=== PATIENT | male | born 1955 | race Caucasian/White ===

== ENCOUNTER 2017-02-26 11:29 | Emergency (ER) | payer BC ==
[~2017-02-26] VITALS: Ht 177.8 cm; Wt 160.0 kg
[~2017-02-26 11:29] MED LIST: ALLO300T2 PO; ESOM40GR PO
[2017-02-26 11:31] VITALS: TEMP 36.4; Ht 177.8 cm; Wt 160.0 kg
[2017-02-26] MEDS ORDERED: KETOROLAC TROMETHAMINE 30 MG/ML VIAL IV STA (12:00)
[2017-02-26] MEDS ORDERED: ONDANSETRON INJ 2 MG/ML 2 ML VIAL IV STA (12:00)
[2017-02-26] MEDS ORDERED: FENTANYL CITRATE INJ 50 MCG/1 ML 2 ML VIAL IV STA (12:00)
[2017-02-26] MEDS ORDERED: SODIUM CHLORIDE 0.9% 1000ML 1,000 ML IV STA (12:00)
[2017-02-26 12:10] LABS: BASO % 0.1 %; BASO ABS # 0.01 K/uL (0-0.2); COMPLETE YES; EOS % 1.1 %; IG% 0.5 %; LYMPH % 13.7 %; LYMPH ABS # 1.45 K/uL (1.2-3.4); MEAN CELL VOLUME 84.9 fL (80-100); MEAN CORPUSCULAR HEMOGLOBIN 28.5 pg (25-34); MEAN CORPUSCULAR HGB CONC 33.6 g/dl (32-36); MEAN PLATELET VOLUME 10.1 fL (7.4-10.4); NEUT % 78.6 %; PLATELET COUNT 163 K/uL (130-400); WHITE BLOOD COUNT 10.55 K/uL (4.8-10.8)
[2017-02-26 12:17] LABS: CREATININE 1.18 mg/dl (0.60-1.40); POTASSIUM 4.3 mmol/L (3.5-5.1)
--- NOTE | 2017-02-26 12:54 | DIAGNOSTIC IMAGING REPORT ---
ABDOMEN AND PELVIS CT WITHOUT CONTRAST CT DOSE: 1782.50 mGy.cm HISTORY: Left flank pain TECHNIQUE: Multiaxial CT images of the abdomen and pelvis were performed without the use of intravenous and oral contrast according to the standard department stone protocol. A dose lowering technique was utilized adhering to the principles of ALARA. COMPARISON STUDY: None. FINDINGS: The lung bases are clear. No pneumoperitoneum. No pneumatosis. No suspicious lytic or blastic osseous lesions. Small fat-containing umbilical hernia. Small fat-containing bilateral inguinal hernias. Hepatic steatosis. The unenhanced spleen, adrenal glands, pancreas, and gallbladder are unremarkable. No retroperitoneal lymphadenopathy. Appendectomy. Normal bladder. Suboptimal evaluation for bowel pathology due to the lack of intravenous and oral contrast. However, there is no definite bowel wall thickening or obstruction. Colonic diverticulosis. No renal calculi. No right-sided hydronephrosis. Mild left perinephric edema. Mild left hydronephrosis secondary to an obstructing 2 mm stone within the distal left ureter best seen on image 429. IMPRESSION: 1. A 2 mm stone within the distal left ureter resulting in mild left hydronephrosis. 2. Hepatic steatosis. 3. Colonic diverticulosis. 4. Appendectomy. Electronically signed by: Jaguar Juarez M.D. 02/26/2017 12:52 PM Dictated Date/Time: 02/26/2017 12:48 PM
[2017-02-26] MEDS ORDERED: MoRPHine SULFATE 10 MG/ML CARP/VIAL IV STA (13:08)
[2017-02-26] MEDS ORDERED: OXYC-106 PO (13:09)
[2017-02-26] MEDS ORDERED: ONDA4TAB10 SL (13:09)
--- NOTE | 2017-02-26 13:10 | EMERGENCY ROOM VISIT NOTE ---
History Report prepared by Lesvia: Lela Warren Under the Supervision of: Dr. Jerrell Barger D.O. First contact with patient: 11:50 Chief Complaint: FLANK PAIN Stated Complaint: L ABDOMINAL PAIN Nursing Triage Summary: pt reports left flank pain states kidney stone s has hx of . started last night pain around to abd History of Present Illness The patient is a 61 year old male who presents to the Emergency Room with complaints of constant left sided flank pain beginning about 9 hours ago. The patient states his pain started in his back and is now radiating to his abdomen. He reports nausea but denies vomiting, diarrhea, and fevers. The patient has a history kidney stones. Source of History: patient Onset: 9 hours ago Position: other (flank) Quality: other (radiating) Timing: constant Associated Symptoms: + nausea, + abdominal pain, No fevers, No vomiting, No diarrhea Review of Systems See HPI for pertinent positives & negatives. A total of 10 systems reviewed and were otherwise negative. Family History Patient reports no known family medical history. Social History Smoking Status: Never Smoker Marital Status: Housing Status: lives with family Current/Historical Medications Scheduled Allopurinol (Zyloprim), 300 MG PO DAILY Esomeprazole Magnesium (Nexium), 40 MG PO DAILY Ondasetron Odt (Zofran Odt), 4 MG SL Q6H Scheduled PRN Oxycodone/Acetaminophen 10MG/325MG (Percocet 10MG/325MG), 1 TAB PO Q4H PRN for Pain Allergies Coded Allergies: No Known Allergies (Unverified , 02/26/17) Physical Exam Vital Signs Date Time Temp Pulse Resp B/P (MAP) Pulse Ox O2 Delivery O2 Flow Rate FiO2 02/26/17 13:07 65 18 150/81 94 Room Air 02/26/17 11:31 36.4 65 32 178/98 96 Room Air Physical Exam CONSTITUTIONAL/VITAL SIGNS: Reviewed / noted above. GENERAL: Non-toxic in appearance. INTEGUMENTARY: Warm, dry, and Rhine. HEAD: Normocephalic. EYES: without scleral icterus or trauma. ENT/OROPHARYNX: clear and moist. LYMPHADENOPATHY/NECK: Is supple without lymphadenopathy or meningismus. RESPIRATORY: Lungs clear and equal. CARDIOVASCULAR: Regular rate and rhythm. GI/ABDOMEN: Soft and nontender. No organomegaly or pulsatile mass. No rebound or guarding. Normal bowel sounds. EXTREMITIES: Warm and well perfused. BACK: No CVA tenderness. NEUROLOGICAL: Intact without focal deficits. PSYCHIATRIC: normal affect. MUSCULOSKELETAL: Normally developed with good muscle tone. Medical Decision & Procedures ER Provider Diagnostic Interpretation: Radiology results as stated below per my review and radiologist interpretation: ABDOMEN AND PELVIS CT WITHOUT CONTRAST FINDINGS: The lung bases are clear. No pneumoperitoneum. No pneumatosis. No suspicious lytic or blastic osseous lesions. Small fat-containing umbilical hernia. Small fat-containing bilateral inguinal hernias. Hepatic steatosis. The unenhanced spleen, adrenal glands, pancreas, and gallbladder are unremarkable. No retroperitoneal lymphadenopathy. Appendectomy. Normal bladder. Suboptimal evaluation for bowel pathology due to the lack of intravenous and oral contrast. However, there is no definite bowel wall thickening or obstruction. Colonic diverticulosis. No renal calculi. No right-sided hydronephrosis. Mild left perinephric edema. Mild left hydronephrosis secondary to an obstructing 2 mm stone within the distal left ureter best seen on image 429. IMPRESSION: 1. A 2 mm stone within the distal left ureter resulting in mild left hydronephrosis. 2. Hepatic steatosis. 3. Colonic diverticulosis. 4. Appendectomy. Electronically signed by: Jaguar Juarez M.D. Laboratory Results 02/26/17 11:45 Red Blood Count 5.30, Mean Corpuscular Volume 84.9, Mean Corpuscular Hemoglobin 28.5, Mean Corpuscular Hemoglobin Concent 33.6, Mean Platelet Volume 10.1, Neutrophils (%) (Auto) 78.6, Lymphocytes (%) (Auto) 13.7, Monocytes (%) (Auto) 6.0, Eosinophils (%) (Auto) 1.1, Basophils (%) (Auto) 0.1, Neutrophils # (Auto) 8.29, Lymphocytes # (Auto) 1.45, Monocytes # (Auto) 0.63, Eosinophils # (Auto) 0.12, Basophils # (Auto) 0.01 02/26/17 11:45 Test 02/26/17 11:45 White Blood Count 10.55 K/uL (4.8-10.8) Red Blood Count 5.30 M/uL (4.7-6.1) Hemoglobin 15.1 g/dL (14.0-18.0) Hematocrit 45.0 % (42-52) Mean Corpuscular Volume 84.9 fL (80-100) Mean Corpuscular Hemoglobin 28.5 pg (25-34) Mean Corpuscular Hemoglobin Concent 33.6 g/dl (32-36) Platelet Count 163 K/uL (130-400) Mean Platelet Volume 10.1 fL (7.4-10.4) Neutrophils (%) (Auto) 78.6 % Lymphocytes (%) (Auto) 13.7 % Monocytes (%) (Auto) 6.0 % Eosinophils (%) (Auto) 1.1 % Basophils (%) (Auto) 0.1 % Neutrophils # (Auto) 8.29 K/uL (1.4-6.5) Lymphocytes # (Auto) 1.45 K/uL (1.2-3.4) Monocytes # (Auto) 0.63 K/uL (0.11-0.59) Eosinophils # (Auto) 0.12 K/uL (0-0.5) Basophils # (Auto) 0.01 K/uL (0-0.2) RDW Standard Deviation 43.9 fL (36.4-46.3) RDW Coefficient of Variation 14.2 % (11.5-14.5) Immature Granulocyte % (Auto) 0.5 % Immature Granulocyte # (Auto) 0.05 K/uL (0.00-0.02) Anion Gap 10.0 mmol/L (3-11) Est Creatinine Clear Calc Drug Dose 102.8 ml/min Estimated GFR () 77.8 Estimated GFR (Non- 67.1 BUN/Creatinine Ratio 13.0 (10-20) Calcium Level 9.0 mg/dl (8.5-10.1) Total Bilirubin 0.5 mg/dl (0.2-1) Direct Bilirubin 0.1 mg/dl (0-0.2) Aspartate Amino Transf (AST/SGOT) 46 U/L (15-37) Alanine Aminotransferase (ALT/SGPT) 66 U/L (12-78) Alkaline Phosphatase 59 U/L (45-117) Total Protein 8.0 gm/dl (6.4-8.2) Albumin 3.8 gm/dl (3.4-5.0) Lipase 241 U/L (73-393) Laboratory results as stated above per my review. Medications Administered Medications (Trade) Dose Ordered Sig/Isaiah Route Start Time Stop Time Status Last Admin Dose Admin Sodium Chloride 1,000 ml @ 999 mls/hr Q1H1M STAT IV 02/26/17 12:00 02/26/17 13:00 DC 02/26/17 12:08 999 MLS/HR Fentanyl Citrate (Fentanyl Inj) 100 mcg NOW STAT IV 02/26/17 12:00 02/26/17 12:01 DC 02/26/17 12:07 100 MCG Ondansetron HCl (Zofran Inj) 4 mg NOW STAT IV 02/26/17 12:00 02/26/17 12:01 DC 02/26/17 12:05 4 MG Ketorolac Tromethamine (Toradol Inj) 30 mg NOW STAT IV 02/26/17 12:00 02/26/17 12:01 DC 02/26/17 12:06 30 MG Morphine Sulfate (MoRPHine SULFATE INJ) 6 mg NOW STAT IV 02/26/17 13:08 02/26/17 13:09 DC 02/26/17 13:14 6 MG ED Course 1157: Previous medical records were reviewed. The patient was evaluated in room C3. A complete history and physical examination was performed. 1200: Ordered Toradol Inj 30 mg IV, Zofran Inj 4 mg IV, Fentanyl Inj 100 mcg IV , Sodium Chloride 1000 ml @ 999 mls/hr IV. 1308: Ordered Morphine Sulfate 6 mg IV. 1312: On reevaluation, the patient is resting comfortably. I discussed the results and findings with the patient. He verbalized agreement of the treatment plan. The patient was discharged home. Medical Decision Differential considered: pancreatitis, hepatitis, or acute cholecystitis, AAA, UTI, pyelonephritis, kidney stones, appendicitis, diverticulitis, shingles, bowel obstruction mesenteric ischemia, intussusception,hernia, testicular torsion. This is a 61-year-old male who presents to the ED with a chief complaint left flank pain. This started 2:30 this morning. Details listed above. Associated with nausea. The pain had been coming and going but now is continuous. Vital signs are stable. Physical exam was relatively unremarkable. A CT scan revealed a 2 mm left distal ureteral calculus. The patient's blood work was unremarkable. The patient was told results. He was treated with IV pain medication including IV Toradol, IV Zofran and IV fentanyl. He was felt to be stable for discharge and outpatient follow-up. [place] Drug Monitoring Program Search Results: patient reviewed within database, no issues identified Medication Reconcilliation Current Medication List: was personally reviewed by me Blood Pressure Screening Patient's blood pressure: Elevated blood pressure Blood pressure disposition: Elevated BP felt to be situational Impression Primary Impression: Kidney stone Additional Impression: Ureteral calculus Scribe Attestation The scribe's documentation has been prepared under my direction and personally reviewed by me in its entirety. I confirm that the note above accurately reflects all work, treatment, procedures, and medical decision making performed by me. Departure Information Dispostion Home / Self-Care Prescriptions Ondasetron Odt (ZOFRAN ODT) 4 Mg Tab 4 MG SL Q6H for Nausea, #15 TAB Prov: Jerrell Barger D.O. 02/26/17 Oxycodone/Acetaminophen 10MG/325MG (PERCOCET 10MG/325MG) Tab 1 TAB PO Q4H Y for Pain, #30 TAB Prov: Jerrell Barger D.O. 02/26/17 Referrals Tom Madera M.D. (PCP) Forms HOME CARE DOCUMENTATION FORM, IMPORTANT VISIT INFORMATION Patient Instructions Kidney Stones Expectant Therapy, My [facility] Additional Instructions The CT scan shows a 2 mm stone in the left ureter. Zofran: Allow one tablet to dissolve under the tongue every 6 hours as needed for nausea or vomiting. Percocet as prescribed. No driving within 6 hours of use. Do not take additional Tylenol while taking Percocet. Take ibuprofen 600 mg every 6 hours. Strain urine for stone. Problem Qualifiers
[2017-02-26 13:29] VITALS: BP 150/81; PULSE 65; O2SAT 94
== END 2017-02-26 13:29 | disposition home or self-care (01) ==
LOC: C.EDB 11:30 → C.EDC 13:29
DX: N20.0 Calculus of kidney (principal); N20.1 Calculus of ureter

== ENCOUNTER 2018-12-22 06:41 | Inpatient (IN) ==
[2018-12-22] MEDS ORDERED: ONDANSETRON INJ 2 MG/ML 2 ML VIAL IV STA (07:28)
[2018-12-22] MEDS ORDERED: SODIUM CHLORIDE 0.9% 1000ML 1,000 ML IV ONE (07:28)
[2018-12-22] MEDS ORDERED: HYDROmorphone INJ 0.5 MG/0.5 ML SYR IV STA (07:28)
--- NOTE | 2018-12-22 07:41 | Emergency Department Note ---
History of Present Illness General Chief complaint: Abdominal Pain Stated complaint: SOB,SEVERE PAIN RT SIDE OF CHEST X 2 Time Seen by Provider: 12/22/18 07:02 History of Present Illness Maximum Pain Intensity: 10 63-year-old male who presents to the emergency department with his for evaluation of right upper quadrant pain that started last evening around 11 PM. The patient reports a prior history of gastric sleeve procedure in 2018. This was performed at [facility] in [place]. The patient reports that he had meatloaf and corn last night. The patient reports that he has to be careful how he eats because of his gastric sleeve. The patient reports that the pain is constant and stabbing in nature. It does not radiate into the chest or shoulder. The breathing worsens his discomfort. Patient does not have any additional alleviating factors for the pain. He reports nausea and vomiting. He did try to take some hydrocodone last evening for the pain, but vomited. He has had chills, but did not check his temperature. The patient currently rates his discomfort a 10 out of 10. The patient does report family history of gallbladder disease. Patient does have a history of GERD and kidney stones, but reports that this feels different. He is status post appendectomy. Home Medications Home Medications Medication Instructions Recorded Confirmed Type allopurinol [Zyloprim] 300 mg PO QPM 12/22/18 12/22/18 History esomeprazole magnesium [Nexium] 40 mg PO QPM 12/22/18 12/22/18 History hydrocodone-acetaminophen [[place]] 1 tab PO Q6H PRN 12/22/18 12/22/18 History Allergies Allergy/AdvReac Type Severity Reaction Status Date / Time No Known Allergies Allergy Unverified 12/22/18 10:29 Past Med/Surg History Medical History Obesity (BMI 35.0-39.9 without comorbidity) (Chronic) ROSALVA (obstructive sleep apnea) (Resolved) Gout (Chronic) History of gastroesophageal reflux (GERD) (Chronic) Kidney stones Surgical History History of appendectomy History of gastrointestinal surgery Family History Mother Coronary heart disease Stroke Father Liver cirrhosis Liver cancer Sister Breast cancer Uncle Heart disease Social History Preferred Language: Greenlandic Communication Ability: Effective [employer]ing Center Manager Required: No Beliefs That Will Affect Care: None marital status: Current Living Situation: Spouse current occupational status: employed Other Information That Helps Us Care for You: No Feels Safe at Home: Yes Safety Concerns: Feels Safe At This Time Smoking Status: Former smoker Tobacco Type: cigarettes ; Do You Dip or Chew Tobacco: No ; Second Hand Exposure: No ; Tobacco Cessation Education Requested by Patient: No Hx Alcohol Use: Yes Alcohol type: beer Hx Substance Use: No Review of Systems 10 system review was performed and was negative except for pertinent positives and negatives as indicated in history of present illness Physical Exam Vital Signs Vital Signs - 24 hr 12/22/18 06:44 12/22/18 07:56 12/22/18 08:59 Temperature 36.8 C Temperature Source Oral Sepsis Recent Fever Within 48 Hours No Sepsis Action Taken by Nursing No Action Required Pulse Rate 93 H 73 Pulse Rate from SpO2 Sensor 72 Pulse Rhythm Regular Pulse Strength Normal Respiratory Rate 20 23 25 H Respiratory Effort / Characteristics Non-Labored Spontaneous Respiratory Depth Normal Respiratory Pattern Regular Blood Pressure 134/100 121/91 168/90 H Blood Pressure Mean 111 101 116 Blood Pressure Position Sitting Pulse Oximetry 96 93 Oxygen Delivery Method Room Air 12/22/18 09:00 12/22/18 09:30 12/22/18 10:01 Temperature Temperature Source Sepsis Recent Fever Within 48 Hours Sepsis Action Taken by Nursing Pulse Rate 72 70 76 Pulse Rate from SpO2 Sensor 72 75 Pulse Rhythm Pulse Strength Respiratory Rate 19 20 21 Respiratory Effort / Characteristics Respiratory Depth Respiratory Pattern Blood Pressure 150/121 H 183/106 H 172/94 H Blood Pressure Mean 130 131 120 Blood Pressure Position Pulse Oximetry 92 90 Oxygen Delivery Method 12/22/18 10:31 Temperature Temperature Source Sepsis Recent Fever Within 48 Hours Sepsis Action Taken by Nursing Pulse Rate 73 Pulse Rate from SpO2 Sensor 73 Pulse Rhythm Pulse Strength Respiratory Rate 28 H Respiratory Effort / Characteristics Respiratory Depth Respiratory Pattern Blood Pressure 161/85 H Blood Pressure Mean 110 Blood Pressure Position Pulse Oximetry 94 Oxygen Delivery Method CONSTITUTIONAL: Obese male, alert and oriented X 3. Patient appears in moderately severe discomfort. HEENT: Normocephalic, atraumatic. Pupils equal, round and reactive. No scleral icterus or conjunctival injection/pallor. NECK: Full active range of motion without discomfort. RESPIRATORY: Clear to auscultation bilaterally with no wheezing, crackles, rhonchi or stridor. The breathing worsens the patient's discomfort. CARDIOVASCULAR: Regular rate and rhythm with no murmurs, rubs or gallops. GASTROINTESTINAL: Bowel sounds present in all quadrants. Patient does have epigastric and right upper quadrant tenderness to palpation without rigidity, guarding or rebound. Negative CVA tenderness. MUSCULOSKELETAL: Full range of motion of all joints without discomfort. INTEGUMENTARY: No rash or other significant dermatologic conditions noted. HEMATOLOGIC: No ecchymosis or petechiae. PSYCHIATRIC: Positive affect. NEUROLOGIC: No focal neurologic deficits noted. Course Patient history and physical exam were performed. Nurse's notes were reviewed. Vital signs were reviewed and were normal. IV access was established, and labs were drawn. Patient was hydrated with a liter normal saline, and was administered IV Dilaudid and Zofran for pain and nausea. Review of labs shows elevated total bilirubin, LFTs and alkaline phosphatase. Patient also has a moderate leukocytosis. Thrombocytopenia is also noted. ECG was also performed and was normal. Right upper quadrant ultrasound shows a thickened gallbladder wall and common bile duct dilatation without any pericholecystic fluid. Gallstones are noted. CT of the abdomen and pelvis with IV contrast does show evidence for moderate pericholecystic fluid, consistent with acute cholecystitis. The case was further discussed with Dr. Shelley, ED attending physician, who recommended surgical consultation. I then discussed the case further with Dr. Dillard, general surgeon on-call, who evaluated the patient and is recommending hospitalist admission with MRCP studies and GI consultation. He mentioned that if the studies were normal, he would perform laparoscopic cholecystectomy on Tuesday. [facility]. Please see their dictations for further treatment and final disposition. Administered Medications Hydromorphone HCl (Dilaudid) 0.5 mg IV Q1H PRN PRN Reason: Pain Stop: 01/05/19 12:17 Last Admin: 12/22/18 15:56 Dose: 0.5 mg Documented by: [id number] Sodium Chloride (Nss 1000ml) 1,000 mls @ 100 mls/hr IV .Q10H ANTON Stop: 01/21/19 13:38 Last Admin: 12/22/18 13:50 Dose: 100 mls/hr Documented by: [id number] Ciprofloxacin (Cipro) 400 mg in 200 mls @ 100 mls/hr IV Q12H ANTON; Protocol Stop: 12/24/18 13:59 Last Infusion: 12/22/18 16:33 Dose: 0 mls/hr Documented by: [id number] Admin: 12/22/18 14:21 Dose: 100 mls/hr Documented by: [id number] Metronidazole (Flagyl) 500 mg in 100 mls @ 100 mls/hr IV Q8H ANTON Stop: 12/24/18 15:59 Last Admin: 12/22/18 17:21 Dose: 100 mls/hr Documented by: [id number] Ioversol (Optiray 320 100ml) 94 ml IV ONCE PRN PRN Reason: Interaction Checking Stop: 12/26/18 08:43 Last Admin: 12/22/18 08:44 Dose: 94 ml Documented by: [id number] Discontinued Medications Hydromorphone HCl (Dilaudid) 0.5 mg IV NOW STA Stop: 12/22/18 07:29 Last Admin: 12/22/18 07:52 Dose: 0.5 mg Documented by: [id number] Hydromorphone HCl (Dilaudid) 0.5 mg IV Q30M PRN PRN Reason: Pain Stop: 01/05/19 07:55 Last Admin: 12/22/18 10:28 Dose: 0.5 mg Documented by: [id number] Admin: 12/22/18 09:10 Dose: 0.5 mg Documented by: [id number] Hydromorphone HCl (Dilaudid) 1 mg IV NOW STA Stop: 12/22/18 10:59 Last Admin: 12/22/18 11:17 Dose: 1 mg Documented by: [id number] Hydromorphone HCl (Dilaudid) 0.5 mg IV Q2H PRN PRN Reason: Pain Stop: 01/05/19 07:55 Last Admin: 12/22/18 13:46 Dose: 0.5 mg Documented by: [id number] Sodium Chloride (Nss 1000ml) 1,000 mls @ 999 mls/hr IV .Q1H1M ONE Stop: 12/22/18 08:28 Last Infusion: 12/22/18 10:24 Dose: 0 mls/hr Documented by: [id number] Admin: 12/22/18 07:52 Dose: 999 mls/hr Documented by: [id number] Indomethacin (Indocin) 100 mg TX ONE ONE Stop: 12/22/18 16:50 Last Admin: 12/22/18 18:56 Dose: 100 mg Documented by: [id number] Ondansetron HCl (Zofran) 4 mg IV NOW STA Stop: 12/22/18 07:29 Last Admin: 12/22/18 07:52 Dose: 4 mg Documented by: [id number] Medical Decision Making Medical Records Attestation: I reviewed the patient's medical records. Home Medications Current Medication List: was personally reviewed by me Laboratory Data Attestation: I reviewed the patient's lab results. Result diagrams: 12/22/18 07:45 12/22/18 07:45 Lab Results 12/22/18 12/22/18 12/22/18 Range/Units 07:45 07:45 07:45 WBC 11.47 H (4.8-10.8) K/uL RBC 5.33 (4.7-6.1) M/uL Hgb 15.6 (14.0-18.0) g/dL Hct 46.0 (42-52) % MCV 86.3 (80-100) fL MCH 29.3 (25-34) pg MCHC 33.9 (32-36) g/dL RDW Std Deviation 46.7 H (36.4-46.3) fL RDW Coeff of Bre 14.8 H (11.5-14.5) % Plt Count 126 L (130-400) K/uL MPV 10.9 H (7.4-10.4) fL Immature Gran % (Auto) 0.3 % Neut % (Auto) 83.2 % Lymph % (Auto) 8.1 % [place] % (Auto) 7.3 % Eos % (Auto) 1.0 % Baso % (Auto) 0.1 % Immature Gran # (Auto) 0.03 H (0.00-0.02) K/uL Neut # (Auto) 9.54 H (1.4-6.5) K/uL Lymph # (Auto) 0.93 L (1.2-3.4) K/uL [place] # (Auto) 0.84 H (0.11-0.59) K/uL Eos # (Auto) 0.12 (0-0.5) K/uL Baso # (Auto) 0.01 (0-0.2) K/uL PT Cancelled INR Cancelled APTT (21.0-31.0) Seconds PTT Ratio Sodium 137 (136-145) mmol/L Potassium 3.9 (3.5-5.1) mmol/L Chloride 107 (98-107) mmol/L Carbon Dioxide 22 (21-32) mmol/L Anion Gap 8.0 (3-11) BUN 13 (7-18) mg/dl Creatinine 0.73 (0.6-1.4) mg/dl Est Cr Clr Drug Dosing 136.0 ml/min Est GFR ( Amer) 116.0 Est GFR (Non-Af Amer) 100.1 BUN/Creatinine Ratio 17.1 (10-20) Glucose 132 H (70-99) mg/dl Lactate (0.4-2.0) mmol/L Calcium 9.0 (8.5-10.1) mg/dl Total Bilirubin 1.2 H (0.2-1) mg/dl AST 140 H (15-37) U/L ALT 365 H (12-78) U/L Alkaline Phosphatase 171 H (45-117) U/L Total Protein 8.0 (6.4-8.2) gm/dl Albumin 3.8 (3.4-5.0) gm/dl Globulin 4.2 H (2.5-4.0) gm/dl Albumin/Globulin Ratio 0.9 (0.9-2) Lipase 230 (73-393) U/L Procalcitonin (0-0.5) ng/ml Specimen Hemolysis Urine Color Urine Appearance (Clear) Urine pH (4.5-7.5) Ur Specific [place] (1.000-1.030) Urine Protein (Negative) Urine Glucose (UA) (Negative) Urine Ketones (Negative) Urine Blood (Negative) Urine Nitrite (Negative) Urine Bilirubin (Negative) Urine Urobilinogen (Negative) Ur Leukocyte Esterase (Negative) 12/22/18 12/22/18 12/22/18 Range/Units 08:55 09:30 10:41 WBC (4.8-10.8) K/uL RBC (4.7-6.1) M/uL Hgb (14.0-18.0) g/dL Hct (42-52) % MCV (80-100) fL MCH (25-34) pg MCHC (32-36) g/dL RDW Std Deviation (36.4-46.3) fL RDW Coeff of Bre (11.5-14.5) % Plt Count (130-400) K/uL MPV (7.4-10.4) fL Immature Gran % (Auto) % Neut % (Auto) % Lymph % (Auto) % [place] % (Auto) % Eos % (Auto) % Baso % (Auto) % Immature Gran # (Auto) (0.00-0.02) K/uL Neut # (Auto) (1.4-6.5) K/uL Lymph # (Auto) (1.2-3.4) K/uL [place] # (Auto) (0.11-0.59) K/uL Eos # (Auto) (0-0.5) K/uL Baso # (Auto) (0-0.2) K/uL PT 11.8 INR 1.2 H APTT 27.8 (21.0-31.0) Seconds PTT Ratio 1.0 Sodium (136-145) mmol/L Potassium (3.5-5.1) mmol/L Chloride (98-107) mmol/L Carbon Dioxide (21-32) mmol/L Anion Gap (3-11) BUN (7-18) mg/dl Creatinine (0.6-1.4) mg/dl Est Cr Clr Drug Dosing ml/min Est GFR ( Amer) Est GFR (Non-Af Amer) BUN/Creatinine Ratio (10-20) Glucose (70-99) mg/dl Lactate 1.1 (0.4-2.0) mmol/L Calcium (8.5-10.1) mg/dl Total Bilirubin (0.2-1) mg/dl AST (15-37) U/L ALT (12-78) U/L Alkaline Phosphatase (45-117) U/L Total Protein (6.4-8.2) gm/dl Albumin (3.4-5.0) gm/dl Globulin (2.5-4.0) gm/dl Albumin/Globulin Ratio (0.9-2) Lipase (73-393) U/L Procalcitonin (0-0.5) ng/ml Specimen Hemolysis Urine Color Yellow Urine Appearance Clear (Clear) Urine pH 6.5 (4.5-7.5) Ur Specific [place] 1.034 H (1.000-1.030) Urine Protein Negative (Negative) Urine Glucose (UA) Negative (Negative) Urine Ketones 1+ H (Negative) Urine Blood Negative (Negative) Urine Nitrite Negative (Negative) Urine Bilirubin Negative (Negative) Urine Urobilinogen Negative (Negative) Ur Leukocyte Esterase Negative (Negative) 12/22/18 Range/Units 10:41 WBC (4.8-10.8) K/uL RBC (4.7-6.1) M/uL Hgb (14.0-18.0) g/dL Hct (42-52) % MCV (80-100) fL MCH (25-34) pg MCHC (32-36) g/dL RDW Std Deviation (36.4-46.3) fL RDW Coeff of [place] (11.5-14.5) % Plt Count (130-400) K/uL MPV (7.4-10.4) fL Immature Gran % (Auto) % Neut % (Auto) % Lymph % (Auto) % [place] % (Auto) % Eos % (Auto) % Baso % (Auto) % Immature Gran # (Auto) (0.00-0.02) K/uL Neut # (Auto) (1.4-6.5) K/uL Lymph # (Auto) (1.2-3.4) K/uL [place] # (Auto) (0.11-0.59) K/uL Eos # (Auto) (0-0.5) K/uL Baso # (Auto) (0-0.2) K/uL PT INR APTT (21.0-31.0) Seconds PTT Ratio Sodium (136-145) mmol/L Potassium (3.5-5.1) mmol/L Chloride (98-107) mmol/L Carbon Dioxide (21-32) mmol/L Anion Gap (3-11) BUN (7-18) mg/dl Creatinine (0.6-1.4) mg/dl Est Cr Clr Drug Dosing ml/min Est GFR ( Amer) Est GFR (Non-Af Amer) BUN/Creatinine Ratio (10-20) Glucose (70-99) mg/dl Lactate (0.4-2.0) mmol/L Calcium (8.5-10.1) mg/dl Total Bilirubin (0.2-1) mg/dl AST (15-37) U/L ALT (12-78) U/L Alkaline Phosphatase (45-117) U/L Total Protein (6.4-8.2) gm/dl Albumin (3.4-5.0) gm/dl Globulin (2.5-4.0) gm/dl Albumin/Globulin Ratio (0.9-2) Lipase (73-393) U/L Procalcitonin 0.11 (0-0.5) ng/ml Specimen Hemolysis Urine Color Urine Appearance (Clear) Urine pH (4.5-7.5) Ur Specific [place] (1.000-1.030) Urine Protein (Negative) Urine Glucose (UA) (Negative) Urine Ketones (Negative) Urine Blood (Negative) Urine Nitrite (Negative) Urine Bilirubin (Negative) Urine Urobilinogen (Negative) Ur Leukocyte Esterase (Negative) Imaging Data Attestation: I personally reviewed and interpreted this imaging study as follows: My Impression: Abdominal ultrasound shows gallstones with a thickened ga llbladder wall and common bile duct. No obvious pericholecystic fluid is appreciated. CT of the abdomen and pelvis with IV contrast shows evidence for moderate pericholecystic fluid. No other acute intra-abdominal findings appreciated. Radiologist reports were reviewed. Radiologist's Impression: US abdomen limited HISTORY: Pain. Nausea. Epigastric/RUQ abd pain - h/o gastric sleeve. COMPARISON: None. FINDINGS: Pancreas: Poorly seen due to overlying bowel content Liver: Mild fatty replacement Gallbladder: Gallstones. Gallbladder wall. Normal 3 mm. CBD: 8 mm Right kidney: No hydronephrosis. IMPRESSION: 1. Gallstones. 2. Gallbladder wall is top normal at 3 mm. 3. Fatty replacement of liver. 4. Mild distention of the common bile duct to [address] abd pelvis IV con only CT DOSE: 1610.95 mGy.cm HISTORY: Pain. Nausea. Epigastric/RUQ pain - h/o gastric sleeve TECHNIQUE: Multiaxial CT images of the abdomen and pelvis were performed following the use of intravenous contrast. A dose lowering technique was utilized adhering to the principles of ALARA. COMPARISON STUDY: 03/04/2017. Ultrasound 04/24/2018. FINDINGS: Interstitial parenchymal prominence both lung bases. Findings are prior gastric bypass type procedure. Liver and spleen are uniform. Edematous change of the gallbladder wall with at least [id number] pericholecystic soft tissue edematous change. This appearance suggests acute cholecystitis based on ultrasound findings describing gallstones. There is mild reactive wall edema of the second component of the duodenal sweep. The kidneys demonstrate small cortical nonobstructing calcifications on the right. There are negative for hydronephrosis. Nonobstructive bowel pattern. Fat-containing periumbilical hernia. This shows no evidence for bowel containment or obstructive characteristics. Chronic sigmoid diverticulosis. No evidence for acute superimposed diverticulitis. Trace amount of reactive free fluid within the pelvic cul-de-sac. IMPRESSION: 1. Findings consistent with acute cholecystitis. 2. Mild reactive wall edema of the descending aspect of the duodenal sweep. 3. Periumbilical hernia containing fat exclusively. 4. Bibasilar interstitial parenchymal prominence of the lungs. ECG Data Attestation: I personally reviewed and interpreted this ECG as follows: Indication: abdominal pain Rate (beats per minute): 66 Rhythm: normal sinus Comparison ECG Date: no prior available Additional Comments: No ST elevations, PVCs or other conduction abnormalities noted. Blood Pressure Blood Pressure Findings: Elevated blood pressure Blood Pressure Disposition: further management by hospitalist JERAMIE Narrative Patient presents with epigastric/right upper quadrant abdominal pain for the past 2 days. Findings today are consistent with acute cholecystitis. Patient does have elevated LFTs, total bilirubin and alkaline phosphatase. Lipase is normal. As recommended by general surgery, the patient will undergo MRCP to rule out choledocholithiasis, with GI consultation for possible ERCP, and to discuss possible tertiary referral because of the patient's prior history of gastric sleeving. Laboratory studies are not suggestive of pancreatitis. CT also does not show evidence for bowel obstruction. The patient is status post appendicitis. Impression & Plan Acute calculous cholecystitis, History of gastric surgery Discharge Plan Visit Data *Final* Discharge Date/Time: 12/22/18 13:10 Chief Complaint: Abdominal Pain Stated Complaint: SOB,SEVERE PAIN RT SIDE OF CHEST X 2 ED Provider: Abdiaziz Shelley ED Midlevel Provider: Harvinder Thompson Discharge Problem: Acute calculous cholecystitis, History of gastric surgery Patient Disposition: Admitted As Inpatient Discharge Instructions Interventions: ED Discharge Assessment Last Done: 12/22/18 13:10
[2018-12-22 08:01] LABS: Basophils # (auto) 0.01 K/uL (0-0.2); Basophils % (auto) 0.1 %; Eosinophils # (auto) 0.12 K/uL (0-0.5); Hemoglobin 15.6 g/dL (14.0-18.0); Immature Granulocytes # (auto) 0.03 K/uL (0.00-0.02); Immature Granulocytes % (auto) 0.3 %; Lymphocytes # (auto) 0.93 K/uL (1.2-3.4); Lymphocytes % (auto) 8.1 %; Mean Corpuscular Hemoglobin 29.3 pg (25-34); Mean Corpuscular Hgb Conc 33.9 g/dL (32-36); Mean Corpuscular Volume 86.3 fL (80-100); Mean Platelet Volume 10.9 fL (7.4-10.4); Monocytes # (auto) 0.84 K/uL (0.11-0.59); Monocytes % (auto) 7.3 %; Neutrophils # (auto) 9.54 K/uL (1.4-6.5); Neutrophils % (auto) 83.2 %; Platelet Count 126 K/uL (130-400); RDW Coefficient of Variation 14.8 % (11.5-14.5); RDW Standard Deviation 46.7 fL (36.4-46.3); Red Blood Count 5.33 M/uL (4.7-6.1); White Blood Count 11.47 K/uL (4.8-10.8)
[2018-12-22 08:29] LABS: Albumin Globulin Ratio 0.9 (0.9-2); Albumin Level 3.8 gm/dl (3.4-5.0); BUN Creatinine Ratio 17.1 (10-20); Bilirubin,Total 1.2 mg/dl (0.2-1); Est GFR (Non-African American) 100.1; Globulin 4.2 gm/dl (2.5-4.0); Potassium 3.9 mmol/L (3.5-5.1)
[2018-12-22] MEDS ORDERED: IOVERSOL 100ml IV PRN (08:44)
--- NOTE | 2018-12-22 08:44 | Ultrasound Report ---
US abdomen limited HISTORY: Pain. Nausea. Epigastric/RUQ abd pain - h/o gastric sleeve. COMPARISON: None. FINDINGS: Pancreas: Poorly seen due to overlying bowel content Liver: Mild fatty replacement Gallbladder: Gallstones. Gallbladder wall. Normal 3 mm. CBD: 8 mm Right kidney: No hydronephrosis. IMPRESSION: 1. Gallstones. 2. Gallbladder wall is top normal at 3 mm. 3. Fatty replacement of liver. 4. Mild distention of the common bile duct to 8 mm. The above report was generated using voice recognition software. It may contain grammatical, syntax or spelling errors. Electronically signed by: John Ross M.D. 12/22/2018 8:42 AM
--- NOTE | 2018-12-22 09:06 | CT Scan Report ---
CT abd pelvis IV con only CT DOSE: 1610.95 mGy.cm HISTORY: Pain. Nausea. Epigastric/RUQ pain - h/o gastric sleeve TECHNIQUE: Multiaxial CT images of the abdomen and pelvis were performed following the use of intrave nous contrast. A dose lowering technique was utilized adhering to the principles of ALARA. COMPARISON STUDY: 03/04/2017. Ultrasound 04/24/2018. FINDINGS: Interstitial parenchymal prominence both lung bases. Findings are prior gastric bypass type procedure. Liver and spleen are uniform. Edematous change of the gallbladder wall with at least [id number] pericholecystic soft tissue e dematous change. This appearance suggests acute cholecystitis based on ultrasound findings describing gallstones. There is mild reactive wall edema of the second component of the duodenal sweep. The kidneys demonstrate small cortical nonobstructing calcifications on the right. There are negative for hydronephrosis. Nonobstructive bowel pattern. Fat-containing periumbilical hernia. This shows no evidence for bowel c ontainment or obstructive characteristics. Chronic sigmoid diverticulosis. No evidence for acute superimposed diverticulitis. Trace amount of reactive free fluid within the pelvic cul-de-sac. IMPRESSION: 1. Findings consistent with acute cholecystitis. 2. Mild reactive wall edema of the descending aspect of the duodenal sweep. 3. Periumbilical hernia containing fat exclusively. 4. Bibasilar interstitial parenchymal prominence of the lungs. The above report was generated using voice recognition software. It may contain grammatical, syntax or spelling errors. Electronically signed by: John Ross M.D. 12/22/2018 9:04 AM
[2018-12-22] MEDS: HYDROmorphone INJ 0.5 MG/0.5 ML SYR IV PRN ×3 (09:10→15:56)
[2018-12-22 09:11] LABS: Appearance Urine Clear (Clear); Bilirubin Urine Negative (Negative); Blood Urine Negative (Negative); Color Urine Yellow; Glucose Urine UA Negative (Negative); Ketones Urine 1+ (Negative); Leukocyte Esterase Urine Negative (Negative); Nitrite Urine Negative (Negative); Protein Urine Negative (Negative); Specific Gravity Urine 1.034 (1.000-1.030); Urobilinogen Urine Negative (Negative); pH Urine 6.5 (4.5-7.5)
[2018-12-22 09:52] LABS: INR 1.2 (0.9-1.1); Partial Thromboplastin Time 27.8 Seconds (21.0-31.0); Prothrombin Time 11.8 Seconds (9.0-12.0)
--- NOTE | 2018-12-22 10:50 | Surgery Consultation ---
Date of Consultation December 22, 2018 Assessment & Plan (1) Acute abdominal pain: pt is a 63 year-old male who presents to Er with one day history acute RUQ pain, IMP: acute abdominal pain, acute cholecystitis, cholelithiasis, possible CBD stone, cholangitis. Plan, recommend: hospitalist admit pt to hospital, MRCP, consult GI, IV fluid, antibiotic, control pain, repeat labs in morning, possible do cholecystectomy on Tuesday if no CBD stone. Thanks, will F/U. pt and his agree with the plan, I answered all questions, D/W ER attending, (2) Acute cholecystitis due to biliary calculus: History of Present Illness Attending Physician: Chief complaint: Abdominal Pain Stated complaint: SOB,SEVERE PAIN RT SIDE OF CHEST X 2 Time Seen by Provider: 12/22/18 07:02 History of Present Illness Maximum Pain Intensity: 10 63-year-old male who presents to the emergency department with his for evaluation of right upper quadrant pain that started last evening around 11 PM. The patient reports a prior history of gastric sleeve procedure in 2018. This was performed at [facility] in [place]. The patient reports that he had meatloaf and corn last night. The patient reports that he has to be careful how he eats because of his gastric sleeve. The patient reports that the pain is constant and stabbing in nature. It does not radiate into the chest or shoulder. The breathing worsens his discomfort. Patient does not have any additional alleviating factors for the pain. He reports nausea and vomiting. He did try to take some hydrocodone last evening for the pain, but vomited. He has had chills, but did not check his temperature. The patient currently rates his discomfort a 10 out of 10. The patient does report family history of gallbladder disease. Patient does have a history of GERD and kidney stones, but reports that this feels different. He is status post appendectomy. I ( Wilmer Dillard MD) got a call for consult this pt, I reviewed pt's H/P labs, CT scan and U/S study with pt and his . pt is still have some RUQ pain, no nausea , no vomiting, pt denies fever, Allergies Allergy/AdvReac Type Severity Reaction Status Date / Time No Known Allergies Allergy Unverified 12/22/18 10:29 Home Medications Home Medications Medication Instructions Recorded Confirmed Type allopurinol [Zyloprim] 300 mg PO QPM 12/22/18 12/22/18 History esomeprazole magnesium [Nexium] 40 mg PO QPM 12/22/18 12/22/18 History hydrocodone-acetaminophen [[place]] 1 tab PO Q6H PRN 12/22/18 12/22/18 History Patient History Medical History Gout History of gastroesophageal reflux (GERD) Kidney stones Surgical History History of appendectomy History of gastrointestinal surgery Social History Preferred Language: Maltese marital status: Current Living Situation: Spouse current occupational status: employed Feels Safe at Home: Yes Smoking Status: Never smoker Review of Systems Review of Systems: All systems reviewed & are unremarkable except as noted in HPI & below Physical Exam Constitutional: WD/WN, vitals as above well developed and well nourished ENMT: external ear and nose normal, oropharynx normal Neck: trachea midline, no thyromegaly Respiratory: normal respiratory effort, lungs clear to auscultation normal respiratory effort Cardiovascular: RRR, no murmur, no edema Rate/Rhythm: regular rate and regular rhythm Heart Sounds: normal S1 and normal S2 Gastrointestinal (Abdomen): soft, mild tenderness at RUQ, no rebound pain, BS +, no rigid, no distend, Musculoskeletal: no cyanosis or clubbing, extremities motor strength 5/5 Skin: no rashes, warm and dry Neurologic: patellar DTR's 2+ bilat, sensation intact Psychiatric: Orientation: alert and oriented x 3 Lymphatic: no cervical or axillary lymphadenopathy Results & Data Vital Signs (Past 12 Hours) Vital Signs Temp Pulse Resp BP Pulse Ox 12/22/18 10:31 73 28 H 161/85 H 94 12/22/18 10:01 76 21 172/94 H 90 12/22/18 09:30 70 20 183/106 H 92 12/22/18 09:00 72 19 150/121 H 12/22/18 08:59 73 25 H 168/90 H 12/22/18 07:56 23 121/91 93 12/22/18 06:44 36.8 C 93 H 20 134/100 96 Laboratory Results Abnormal lab results 12/22/18 12/22/18 12/22/18 Range/Units 07:45 07:45 08:55 WBC 11.47 H (4.8-10.8) K/uL RDW Std Deviation 46.7 H (36.4-46.3) fL RDW Coeff of Bre 14.8 H (11.5-14.5) % Plt Count 126 L (130-400) K/uL MPV 10.9 H (7.4-10.4) fL Immature Gran # (Auto) 0.03 H (0.00-0.02) K/uL Neut # (Auto) 9.54 H (1.4-6.5) K/uL Lymph # (Auto) 0.93 L (1.2-3.4) K/uL [place] # (Auto) 0.84 H (0.11-0.59) K/uL INR (0.9-1.1) Glucose 132 H (70-99) mg/dl Total Bilirubin 1.2 H (0.2-1) mg/dl AST 140 H (15-37) U/L ALT 365 H (12-78) U/L Alkaline Phosphatase 171 H (45-117) U/L Globulin 4.2 H (2.5-4.0) gm/dl Ur Specific [place] 1.034 H (1.000-1.030) Urine Ketones 1+ H (Negative) 12/22/18 Range/Units 09:30 WBC (4.8-10.8) K/uL RDW Std Deviation (36.4-46.3) fL RDW Coeff of Bre (11.5-14.5) % Plt Count (130-400) K/uL MPV (7.4-10.4) fL Immature Gran # (Auto) (0.00-0.02) K/uL Neut # (Auto) (1.4-6.5) K/uL Lymph # (Auto) (1.2-3.4) K/uL [place] # (Auto) (0.11-0.59) K/uL INR 1.2 H (0.9-1.1) Glucose (70-99) mg/dl Total Bilirubin (0.2-1) mg/dl AST (15-37) U/L ALT (12-78) U/L Alkaline Phosphatase (45-117) U/L Globulin (2.5-4.0) gm/dl Ur Specific [place] (1.000-1.030) Urine Ketones (Negative) Diagnostic Findings US abdomen limited HISTORY: Pain. Nausea. Epigastric/RUQ abd pain - h/o gastric sleeve. COMPARISON: None. FINDINGS: Pancreas: Poorly seen due to overlying bowel content Liver: Mild fatty replacement Gallbladder: Gallstones. Gallbladder wall. Normal 3 mm. CBD: 8 mm Right kidney: No hydronephrosis. IMPRESSION: 1. Gallstones. 2. Gallbladder wall is top normal at 3 mm. 3. Fatty replacement of liver. 4. Mild distention of the common bile duct to [address] abd pelvis IV con only CT DOSE: 1610.95 mGy.cm HISTORY: Pain. Nausea. Epigastric/RUQ pain - h/o gastric sleeve TECHNIQUE: Multiaxial CT images of the abdomen and pelvis were performed follo wing the use of intravenous contrast. A dose lowering technique was utilized adhering to the principles of ALARA. COMPARISON STUDY: 03/04/2017. Ultrasound 04/24/2018. FINDINGS: Interstitial parenchymal prominence both lung bases. Findings are prior gastric bypass type procedure. Liver and spleen are uniform. Edematous change of the gallbladder wall with at least [id number] pericholecystic soft tissue edematous change. This appearance suggests acute cholecystitis based on ultrasound findings describing gallstones. There is mild reactive wall edema of the second component of the duodenal sweep. The kidneys demonstrate small cortical nonobstructing calcifications on the right. There are negative for hydronephrosis. Nonobstructive bowel pattern. Fat-containing periumbilical hernia. This shows no evidence for bowel containment or obstructive characteristics. Chronic sigmoid diverticulosis. No evidence for acute superimposed diverticulitis. Trace amount of reactive free fluid within the pelvic cul-de-sac. IMPRESSION: 1. Findings consistent with acute cholecystitis. 2. Mild reactive wall edema of the descending aspect of the duodenal sweep. 3. Periumbilical hernia containing fat exclusively. 4. Bibasilar interstitial parenchymal prominence of the lungs.
[2018-12-22] MEDS ORDERED: HYDROmorphone INJ 1 MG/ML SYRINGE IV STA (10:58)
[2018-12-22] MEDS ORDERED: HYDROmorphone INJ 0.5 MG/0.5 ML SYR IV PRN (12:18)
--- NOTE | 2018-12-22 12:27 | Magnetic Resonance Report ---
Study: MRCP HISTORY: Gallstones. Cholecystitis COMPARISON: CT and ultrasound same date FINDINGS: Gallstone filled gallbladder. Are gallbladder wall thickening with moderate pericholecystic edematous change. Trace perihepatic ascites. Liver is uniform. Slight wall thickening of the descending aspect of the duodenal sweep hematoma secondary to reactive change from the pericholecystic infiltrative process. Pancreas is uniform throughout. The MRCP component of the study shows 2 small filling defects of this common bile duct. Common bile d uct is slightly increased in diameter 8 mm. Pancreas is uniform. Kidneys negative for hydronephrosis. Bowel pattern is nonobstructive. IMPRESSION: 1. Acute cholecystitis. 2. Gallstone filled gallbladder with considerable pericholecystic infiltrative change and/or edematou s change. 3. Trace perihepatic ascites. 4. 2, possibly 3, small filling defects of the distal common duct consistent with choledocholithiasis . Electronically signed by: John Ross M.D. 12/22/2018 12:26 PM
--- NOTE | 2018-12-22 12:38 | XRay Report ---
XR chest 1V portable CLINICAL HISTORY: Preoperative evaluation. COMPARISON STUDY: No previous studies for comparison. FINDINGS: Lung volumes are diminished. There is mild elevation of the right hemidiaphragm. Bibasilar opacities favor atelectasis. There is no evidence for pulmonary edema. Moderate cardiomegaly is noted . IMPRESSION: 1. No acute cardiopulmonary findings. 2. Low lung volumes with bibasilar atelectasis. 3. Moderate cardiomegaly without evidence for pulmonary edema. Electronically signed by: Bebeto Neely M.D. 12/22/2018 12:36 PM
--- NOTE | 2018-12-22 13:17 | Gastrointestinal Consultation ---
Date of Consultation December 22, 2018 Assessment & Plan (1) Acute cholecystitis due to biliary calculus: 63 year old male with history of obesity s/p gastric sleeve who presented through the ED for evaluation of persistent upper abdominal pain w/ associated nausea/vomiting since eating dinner about 48 hours ago. There is evidence of gallstones, cholecystitis and concern for retained biliary stone on MR imaging. He does have elevated LFTs. Lipase normal. Pt is awake, alert, oriented reported continued upper abdominal pain. He is afebrile w/ leukocytosis at 11 - to start on IV ABX after discussion w/ primary team - Will review imaging with attending - Obtain records from [facility] to confirm anatomy - Trend LFTs - Agree w/ IV ABX w/ cholangitis coverage - IV fluid hydration - Antiemetics PRN - Analgesia PRN - Will need ERCP - If anatomy not compatible will need transferred to tertiary care center - OP colonoscopy for colon CA screening Thank you for allowing us to participate in the care of this patient. Please call with any acute changes, questions or concerns. Please see addendum below with additional recommendation from my supervising physician. Present on Admission?: Yes (2) Elevated LFTs: Supervising Physician Co-Signing Physician Notes I have seen and examined the patient and discussed the management with CINDY Soto. 63 yo male admitted with ruq pain, minor tb elevation, ast/alt elevation, and MRCP showing cholecsytitis, distal cbd stones, slightly distended cbd. He is afebrile but with abdominal pain. Pain is 10/10 on admission, now 9/10 with pain medications. No fevers, chills. PE - alert though sleepy, HEENT - no scleral icterus, abd - soft nt nd +bs Labs reviewed Imaging reviewed 63 yo male s/p vertical sleeve gastrectomy in 2018 in [place], admitted with ruq pain and cholecystitis and mrcp showing distal cbd stones. Afebrile, not hypotensive. Labs reviewed- wbc count elevation. Empiric abx started. Will plan for ERCP on 12/23/18 at 9:30 am at the current moment. He is not on blood thinners. Would keep him NPO. History of Present Illness Reason for Consultation: CBD stone Requesting Physician: Amanda Attending Physician: Amanda History of Present Illness 63 year old male with history of GERD, gout, obesity s/p gastric sleeve about one year ago in [facility] who presented through the ED for evaluation of severe abdominal pain - GI asked to evaluate for suspected CBD stone. Pt was seen and evaluated, chart reviewed. Pt notes he typically feels well from a GI standpoint. No abd pain, GERD, nausea/vomiting. 48 hours ago developed severe, persistent upper abdominal pain after dinner. Explained as sharp, burning. Constant. Will acutely worsen after PO. Associated w/ nausea/vomiting. Denies any coffee ground emesis or hematemesis. No change in bowel/bladder function. Denies any black/bloody stools. Is down nearly 90 lbs since gastric sleeve. No fever, chills, CP. Is having SOB. This is new. Notes it hurts to take a deep breath. AC: none HX abd surgery: ex lap w/ repair of perforated bowel years ago, gastric sleeve, appendectomy EGD/Colon: none MRCP: Acute cholecystitis.. Gallstone filled gallbladder with considerable pericholecystic infiltrative change and/or edematous change.Trace perihepatic ascites. 2, possibly 3, small filling defects of the distal common duct consistent with choledocholithiasis. ABD US: Gallstones. Gallbladder wall is top normal at 3 mm. Fatty replacement of liver. Mild distention of the common bile duct to [address]: Findings consistent with acute cholecystitis. Mild reactive wall edema of the descending aspect of the duodenal sweep. Periumbilical hernia containing fat exclusively. Bibasilar interstitial parenchymal prominence of the lungs. Allergies Allergy/AdvReac Type Severity Reaction Status Date / Time No Known Allergies Allergy Unverified 12/22/18 10:29 Home Medications Home Medications Medication Instructions Recorded Confirmed Type allopurinol [Zyloprim] 300 mg PO QPM 12/22/18 12/22/18 History esomeprazole magnesium [Nexium] 40 mg PO QPM 12/22/18 12/22/18 History hydrocodone-acetaminophen [[place]] 1 tab PO Q6H PRN 12/22/18 12/22/18 History Patient History Medical History Obesity (BMI 35.0-39.9 without comorbidity) (Chronic) ROSALVA (obstructive sleep apnea) (Chronic) Gout (Chronic) History of gastroesophageal reflux (GERD) (Chronic) Kidney stones Surgical History History of appendectomy History of gastrointestinal surgery Family History Mother Coronary heart disease Stroke Father Liver cirrhosis Liver cancer Sister Breast cancer Uncle Heart disease Social History Preferred Language: Ghanaian Communication Ability: Effective Foster Parent Required: No Beliefs That Will Affect Care: None marital status: Current Living Situation: Spouse current occupational status: employed Other Information That Helps Us Care for You: No Feels Safe at Home: Yes Safety Concerns: Feels Safe At This Time Smoking Status: Former smoker Tobacco Type: cigarettes ; Do You Dip or Chew Tobacco: No ; Second Hand Exposure: No ; Tobacco Cessation Education Requested by Patient: No Hx Alcohol Use: Yes Alcohol type: beer Hx Substance Use: No Review of Systems Constitutional: no fever, no chills and no fatigue Respiratory: + dyspnea and + pain on inspiration; no cough and no chest congestion Cardiovascular: no chest pain, no radiating jaw, neck or arm pain and no dyspnea at rest Gastrointestinal: + abdominal pain, + nausea, + vomiting and + constipation (chronic, unchanged); no early satiety, no heartburn, no coffee ground emesis, no hematemesis, no change in stools and no melena Physical Exam Constitutional: well developed, well nourished, + acute distress (pt appears to be in pain, reporting SOB) and + ill appearing (pt appears SOB during conversation, wearing O2, hospitalist at bedside) Neck: trachea midline Respiratory: normal respiratory effort; no respiratory distress Cardiovascular: Rate/Rhythm: regular rate and regular rhythm Gastrointestinal (Abdomen): Inspection/Auscultation: normal bowel sounds Percussion/Palpation: + abdomen tender (epigastric and RUQ) and abdomen soft; no guarding and abdomen not rigid Skin: no rashes, warm and dry Results & Data Vital Signs (Past 12 Hours) Vital Signs Temp Pulse Resp BP Pulse Ox 12/22/18 13:10 77 16 160/98 H 98 12/22/18 10:31 73 28 H 161/85 H 94 12/22/18 10:01 76 21 172/94 H 90 12/22/18 09:30 70 20 183/106 H 92 12/22/18 09:00 72 19 150/121 H 12/22/18 08:59 73 25 H 168/90 H 12/22/18 07:56 23 121/91 93 12/22/18 06:44 36.8 C 93 H 20 134/100 96 Laboratory Results 12/22/18 12/22/18 12/22/18 Range/Units 10:41 10:41 09:30 WBC (4.8-10.8) K/uL RBC (4.7-6.1) M/uL Hgb (14.0-18.0) g/dL Hct (42-52) % MCV (80-100) fL MCH (25-34) pg MCHC (32-36) g/dL RDW Std Deviation (36.4-46.3) fL RDW Coeff of Bre (11.5-14.5) % Plt Count (130-400) K/uL MPV (7.4-10.4) fL Immature Gran % (Auto) % Neut % (Auto) % Lymph % (Auto) % Iron % (Auto) % Eos % (Auto) % Baso % (Auto) % Immature Gran # (Auto) (0.00-0.02) K/uL Neut # (Auto) (1.4-6.5) K/uL Lymph # (Auto) (1.2-3.4) K/uL Iron # (Auto) (0.11-0.59) K/uL Eos # (Auto) (0-0.5) K/uL Baso # (Auto) (0-0.2) K/uL PT 11.8 INR 1.2 H APTT 27.8 (21.0-31.0) Seconds PTT Ratio 1.0 Sodium (136-145) mmol/L Potassium (3.5-5.1) mmol/L Chloride (98-107) mmol/L Carbon Dioxide (21-32) mmol/L Anion Gap (3-11) BUN (7-18) mg/dl Creatinine (0.6-1.4) mg/dl Est Cr Clr Drug Dosing ml/min Est GFR ( Amer) Est GFR (Non-Af Amer) BUN/Creatinine Ratio (10-20) Glucose (70-99) mg/dl Lactate 1.1 (0.4-2.0) mmol/L Calcium (8.5-10.1) mg/dl Total Bilirubin (0.2-1) mg/dl AST (15-37) U/L ALT (12-78) U/L Alkaline Phosphatase (45-117) U/L Total Protein (6.4-8.2) gm/dl Albumin (3.4-5.0) gm/dl Globulin (2.5-4.0) gm/dl Albumin/Globulin Ratio (0.9-2) Lipase (73-393) U/L Procalcitonin 0.11 (0-0.5) ng/ml Specimen Hemolysis Urine Color Urine Appearance (Clear) Urine pH (4.5-7.5) Ur Specific [place] (1.000-1.030) Urine Protein (Negative) Urine Glucose (UA) (Negative) Urine Ketones (Negative) Urine Blood (Negative) Urine Nitrite (Negative) Urine Bilirubin (Negative) Urine Urobilinogen (Negative) Ur Leukocyte Esterase (Negative) 12/22/18 12/22/18 12/22/18 Range/Units 08:55 07:45 07:45 WBC (4.8-10.8) K/uL RBC (4.7-6.1) M/uL Hgb (14.0-18.0) g/dL Hct (42-52) % MCV (80-100) fL MCH (25-34) pg MCHC (32-36) g/dL RDW Std Deviation (36.4-46.3) fL RDW Coeff of Bre (11.5-14.5) % Plt Count (130-400) K/uL MPV (7.4-10.4) fL Immature Gran % (Auto) % Neut % (Auto) % Lymph % (Auto) % Iron % (Auto) % Eos % (Auto) % Baso % (Auto) % Immature Gran # (Auto) (0.00-0.02) K/uL Neut # (Auto) (1.4-6.5) K/uL Lymph # (Auto) (1.2-3.4) K/uL Iron # (Auto) (0.11-0.59) K/uL Eos # (Auto) (0-0.5) K/uL Baso # (Auto) (0-0.2) K/uL PT Cancelled INR Cancelled APTT (21.0-31.0) Seconds PTT Ratio Sodium 137 (136-145) mmol/L Potassium 3.9 (3.5-5.1) mmol/L Chloride 107 (98-107) mmol/L Carbon Dioxide 22 (21-32) mmol/L Anion Gap 8.0 (3-11) BUN 13 (7-18) mg/dl Creatinine 0.73 (0.6-1.4) mg/dl Est Cr Clr Drug Dosing 136.0 ml/min Est GFR ( Amer) 116.0 Est GFR (Non-Af Amer) 100.1 BUN/Creatinine Ratio 17.1 (10-20) Glucose 132 H (70-99) mg/dl Lactate (0.4-2.0) mmol/L Calcium 9.0 (8.5-10.1) mg/dl Total Bilirubin 1.2 H (0.2-1) mg/dl AST 140 H (15-37) U/L ALT 365 H (12-78) U/L Alkaline Phosphatase 171 H (45-117) U/L Total Protein 8.0 (6.4-8.2) gm/dl Albumin 3.8 (3.4-5.0) gm/dl Globulin 4.2 H (2.5-4.0) gm/dl Albumin/Globulin Ratio 0.9 (0.9-2) Lipase 230 (73-393) U/L Procalcitonin (0-0.5) ng/ml Specimen Hemolysis Urine Color Yellow Urine Appearance Clear (Clear) Urine pH 6.5 (4.5-7.5) Ur Specific [place] 1.034 H (1.000-1.030) Urine Protein Negative (Negative) Urine Glucose (UA) Negative (Negative) Urine Ketones 1+ H (Negative) Urine Blood Negative (Negative) Urine Nitrite Negative (Negative) Urine Bilirubin Negative (Negative) Urine Urobilinogen Negative (Negative) Ur Leukocyte Esterase Negative (Negative) 12/22/18 Range/Units 07:45 WBC 11.47 H (4.8-10.8) K/uL RBC 5.33 (4.7-6.1) M/uL Hgb 15.6 (14.0-18.0) g/dL Hct 46.0 (42-52) % MCV 86.3 (80-100) fL MCH 29.3 (25-34) pg MCHC 33.9 (32-36) g/dL RDW Std Deviation 46.7 H (36.4-46.3) fL RDW Coeff of Bre 14.8 H (11.5-14.5) % Plt Count 126 L (130-400) K/uL MPV 10.9 H (7.4-10.4) fL Immature Gran % (Auto) 0.3 % Neut % (Auto) 83.2 % Lymph % (Auto) 8.1 % Iron % (Auto) 7.3 % Eos % (Auto) 1.0 % Baso % (Auto) 0.1 % Immature Gran # (Auto) 0.03 H (0.00-0.02) K/uL Neut # (Auto) 9.54 H (1.4-6.5) K/uL Lymph # (Auto) 0.93 L (1.2-3.4) K/uL Iron # (Auto) 0.84 H (0.11-0.59) K/uL Eos # (Auto) 0.12 (0-0.5) K/uL Baso # (Auto) 0.01 (0-0.2) K/uL PT INR APTT (21.0-31.0) Seconds PTT Ratio Sodium (136-145) mmol/L Potassium (3.5-5.1) mmol/L Chloride (98-107) mmol/L Carbon Dioxide (21-32) mmol/L Anion Gap (3-11) BUN (7-18) mg/dl Creatinine (0.6-1.4) mg/dl Est Cr Clr Drug Dosing ml/min Est GFR ( Amer) Est GFR (Non-Af Amer) BUN/Creatinine Ratio (10-20) Glucose (70-99) mg/dl Lactate (0.4-2.0) mmol/L Calcium (8.5-10.1) mg/dl Total Bilirubin (0.2-1) mg/dl AST (15-37) U/L ALT (12-78) U/L Alkaline Phosphatase (45-117) U/L Total Protein (6.4-8.2) gm/dl Albumin (3.4-5.0) gm/dl Globulin (2.5-4.0) gm/dl Albumin/Globulin Ratio (0.9-2) Lipase (73-393) U/L Procalcitonin (0-0.5) ng/ml Specimen Hemolysis Urine Color Urine Appearance (Clear) Urine pH (4.5-7.5) Ur Specific [place] (1.000-1.030) Urine Protein (Negative) Urine Glucose (UA) (Negative) Urine Ketones (Negative) Urine Blood (Negative) Urine Nitrite (Negative) Urine Bilirubin (Negative) Urine Urobilinogen (Negative) Ur Leukocyte Esterase (Negative)
[2018-12-22] MEDS: SODIUM CHLORIDE 0.9% 1000ML 1,000 ML IV SCH ×2 (13:50→22:38)
--- NOTE | 2018-12-22 13:50 | History & Physical Report ---
Date of Service December 22, 2018 Assessment & Plan (1) Acute cholecystitis due to biliary calculus: Patient presents with epigastric and right upper quadrant abdominal pain, nausea, vomiting for the past 48 hours intermittently Abdominal ultrasound and CT obtained in the ED, U/S showing gallstones, CT consistent with edematous changes of gallbladder wall and ann-cholecystic soft tissue, consistent with acute cholecystitis Surgery consulted, plan for cholecystectomy over the weekend (next 48 hours). Pt has low risk for intra- and post-operative cardiac complication, should proceed for surgery, no further work -up needed. Choledocholithiasis identified on MRCP GI consulted, for now plan for ERCP tomorrow morning, December 23, 2018 Risk for ascending cholangitis d/t above, +chills and mildly elevated WBC, patient started on IV antibiotics (Ciprofloxacin and Flagyl) and IV fluids For pain, patient is on 0.5 mg Dilaudid IV q. one hour, will continue to reassess his need for pain meds and will adjust as necessary (2) Elevated LFTs: Most likely secondary to above, therefore not planning to do viral serologies and further work-up at this time Normal LFTs per PCP records from 12/01/2017 GI consulted We will continue to trend and monitor closely (3) Obesity (BMI 35.0-39.9 without comorbidity): In the past patient was morbidly obese, with BMI greater than 50 Only recently underwent gastric sleeve bypass surgery and lost over 100 pounds His current BMI is 37 which is in the obese category, class II however much improved from previous Patient plans to continue with weight loss management after discharge (4) ROSALVA (obstructive sleep apnea): Previously patient was morbidly obese, with BMI greater than 50, in the past he used CPAP Stopped using CPAP after conversation with his PCP, 1 month ago We will continue to monitor while inpatient, will provide supplemental O2 via NC as needed (5) History of gastroesophageal reflux (GERD): At home takes PPI, will hold for now as patient is n.p.o. Plan to resume after discharge (6) Gout: At home takes allopurinol, will hold for now as patient is n.p.o. Plan to resume after discharge (7) DVT prophylaxis: SCDs No pharm. DVT ppx, d/t upcoming procedure and surgery (8) Discharge planning issues: No discharge issues identified on admission. Pt lives at home w/ his , should be able to return back home after his hospitalization. History of Present Illness Chief Complaint: Abdominal pain (d/t acute cholecystitis) Primary Care Provider: Tom Madera MD 63-year-old male with history of morbid obesity, gout, GERD, sleep apnea, who presents with abdominal pain due to acute cholecystitis. Patient has had abdominal pain in his epigastric and right upper quadrant area for past 2 days. It first started after having dinner in the evening 2 nights ago. He describes pain as sharp, but not radiating anywhere, and intermittent. He was able to go to work the next day however pain resumed after having dinner again. He reports having pain between 8 and 10. He is also complaining of nausea, vomiting,and intermittent chills. At home he took hydrocodone, and then vomited after taking the medication. He reports having pain medications at home due to history of kidney stones. He denies any fevers, diarrhea, blood in the stool. He reports having chronic constipation. In the ED patient underwent abdominal ultrasound, which showed gallstones. He also had abdominal CT, which showed edematous changes of gallbladder wall and ann-cholecystic soft tissue, consistent with acute cholecystitis. Surgery was consulted and recommended obtaining MRCP. MRCP confirmed choledocholithiasis. GI was consulted for evaluation and possible ERCP, internal medicine/hospitalist team was consulted for admission and preop medical management. Of note: Pt has history of ex lap due to bowel perforation? (in 1976) and a somewhat recent history of gastric sleeve, done 11 months ago. Since his gastric sleeve surgery, patient lost more than 100 pounds, previously his BMI was over 50, current weight 259 pounds, BMI 37. In the past patient was also diagnosed with obstructive sleep apnea, and was using CPAP. About a month ago he stopped using it after conversation with his PCP. Allergies Allergy/AdvReac Type Severity Reaction Status Date / Time No Known Allergies Allergy Unverified 12/22/18 10:29 Home Medications Home Medications Medication Instructions Recorded Confirmed Type allopurinol [Zyloprim] 300 mg PO QPM 12/22/18 12/22/18 History esomeprazole magnesium [Nexium] 40 mg PO QPM 12/22/18 12/22/18 History hydrocodone-acetaminophen [[place]] 1 tab PO Q6H PRN 12/22/18 12/22/18 History Past Med/Surg History Medical History Obesity (BMI 35.0-39.9 without comorbidity) (Chronic) ROSALVA (obstructive sleep apnea) (Chronic) Gout (Chronic) History of gastroesophageal reflux (GERD) (Chronic) Kidney stones Surgical History History of appendectomy History of gastrointestinal surgery Family History Mother Coronary heart disease Stroke Father Liver cirrhosis Liver cancer Sister Breast cancer Uncle Heart disease Social History Preferred Language: Lithuanian Communication Ability: Effective Gas Operator Required: No Beliefs That Will Affect Care: None marital status: Current Living Situation: Spouse current occupational status: employed Other Information That Helps Us Care for You: No Feels Safe at Home: Yes Safety Concerns: Feels Safe At This Time Smoking Status: Former smoker Tobacco Type: cigarettes ; Do You Dip or Chew Tobacco: No ; Second Hand Exposure: No ; Tobacco Cessation Education Requested by Patient: No Hx Alcohol Use: Yes Alcohol type: beer Hx Substance Use: No Review of Systems Constitutional: + chills and + weight loss (s/p gastric sleeve surg. recently); no fever and no body aches Eyes: + corrective lenses; no eye pain and no photophobia Ear, Nose, Mouth, Throat: no dizziness, no nasal congestion, no facial pain, no sore throat, no dysphagia and no pain with swallowing Respiratory: no cough, no dyspnea and no dyspnea on exertion Cardiovascular: no chest pain, no dyspnea on exertion, no palpitations and no edema Gastrointestinal: + abdominal pain, + nausea, + vomiting and + constipation; no coffee ground emesis, no dysphagia and no blood in stools Genitourinary: no dysuria and no flank pain Musculoskeletal: no swelling and no myalgia Integumentary: no lesions, no sores and no dry skin Neurologic: no localized weakness, no loss of sensation, no tingling, no headache(s), no abnormal speech and no confusion Psychiatric: no depression, no anxiety and no confusion Endocrine: no polydipsia and no polyuria Hematologic / Lymphatic: no easy bleeding, no easy bruising and no night sweats Allergy / Immunological: no throat swelling and no urticaria Physical Exam Constitutional: well developed, well nourished, + acute distress (in pain) and + obese Eyes: PERRL, conjunctivae normal, anicteric sclerae ENMT: external ear and nose normal, oropharynx normal Neck: normal visual inspection supple, full ROM, no cervical LAD Respiratory: normal respiratory effort, lungs clear to auscultation Auscultation: no crackles and no wheezes Cardiovascular: RRR, no murmur, no edema Heart Sounds: no gallop Vessels: no JVD Chest (Breasts): Chest: normal inspection of chest Gastrointestinal (Abdomen): Inspection/Auscultation: normal bowel sounds; abdomen not distended Percussion/Palpation: + abdomen tender (at RUQ and epigastrium) and abdomen soft; abdomen not rigid Musculoskeletal: no cyanosis or clubbing, extremities motor strength 5/5 Head/Neck/Chest: normocephalic and head atraumatic Skin: no rashes, warm and dry normal turgor; no wound and no jaundice Neurologic: PERRL, EOMI, accommodation nl, no face palsy, no dysarthria no sensory deficits noted Psychiatric: A+Ox3, euthymic affect Speech: normal rate/rhythm/volume of sp eech Lymphatic: no lymphedema and no cervical lymphadenopathy Results & Data Vital Signs (Past 12 Hours) Vital Signs Temp Pulse Resp BP Pulse Ox 12/22/18 13:10 77 16 160/98 H 98 12/22/18 10:31 73 28 H 161/85 H 94 12/22/18 10:01 76 21 172/94 H 90 12/22/18 09:30 70 20 183/106 H 92 12/22/18 09:00 72 19 150/121 H 12/22/18 08:59 73 25 H 168/90 H 12/22/18 07:56 23 121/91 93 12/22/18 06:44 36.8 C 93 H 20 134/100 96 Laboratory Results 12/22/18 12/22/18 12/22/18 Range/Units 10:41 10:41 09:30 WBC (4.8-10.8) K/uL RBC (4.7-6.1) M/uL Hgb (14.0-18.0) g/dL Hct (42-52) % MCV (80-100) fL MCH (25-34) pg MCHC (32-36) g/dL RDW Std Deviation (36.4-46.3) fL RDW Coeff of Bre (11.5-14.5) % Plt Count (130-400) K/uL MPV (7.4-10.4) fL Immature Gran % (Auto) % Neut % (Auto) % Lymph % (Auto) % [place] % (Auto) % Eos % (Auto) % Baso % (Auto) % Immature Gran # (Auto) (0.00-0.02) K/uL Neut # (Auto) (1.4-6.5) K/uL Lymph # (Auto) (1.2-3.4) K/uL [place] # (Auto) (0.11-0.59) K/uL Eos # (Auto) (0-0.5) K/uL Baso # (Auto) (0-0.2) K/uL PT 11.8 INR 1.2 H APTT 27.8 (21.0-31.0) Seconds PTT Ratio 1.0 Sodium (136-145) mmol/L Potassium (3.5-5.1) mmol/L Chloride (98-107) mmol/L Carbon Dioxide (21-32) mmol/L Anion Gap (3-11) BUN (7-18) mg/dl Creatinine (0.6-1.4) mg/dl Est Cr Clr Drug Dosing ml/min Est GFR ( Amer) Est GFR (Non-Af Amer) BUN/Creatinine Ratio (10-20) Glucose (70-99) mg/dl Lactate 1.1 (0.4-2.0) mmol/L Calcium (8.5-10.1) mg/dl Total Bilirubin (0.2-1) mg/dl AST (15-37) U/L ALT (12-78) U/L Alkaline Phosphatase (45-117) U/L Total Protein (6.4-8.2) gm/dl Albumin (3.4-5.0) gm/dl Globulin (2.5-4.0) gm/dl Albumin/Globulin Ratio (0.9-2) Lipase (73-393) U/L Procalcitonin 0.11 (0-0.5) ng/ml Specimen Hemolysis Urine Color Urine Appearance (Clear) Urine pH (4.5-7.5) Ur Specific [place] (1.000-1.030) Urine Protein (Negative) Urine Glucose (UA) (Negative) Urine Ketones (Negative) Urine Blood (Negative) Urine Nitrite (Negative) Urine Bilirubin (Negative) Urine Urobilinogen (Negative) Ur Leukocyte Esterase (Negative) 12/22/18 12/22/18 12/22/18 Range/Units 08:55 07:45 07:45 WBC (4.8-10.8) K/uL RBC (4.7-6.1) M/uL Hgb (14.0-18.0) g/dL Hct (42-52) % MCV (80-100) fL MCH (25-34) pg MCHC (32-36) g/dL RDW Std Deviation (36.4-46.3) fL RDW Coeff of Bre (11.5-14.5) % Plt Count (130-400) K/uL MPV (7.4-10.4) fL Immature Gran % (Auto) % Neut % (Auto) % Lymph % (Auto) % [place] % (Auto) % Eos % (Auto) % Baso % (Auto) % Immature Gran # (Auto) (0.00-0.02) K/uL Neut # (Auto) (1.4-6.5) K/uL Lymph # (Auto) (1.2-3.4) K/uL [place] # (Auto) (0.11-0.59) K/uL Eos # (Auto) (0-0.5) K/uL Baso # (Auto) (0-0.2) K/uL PT Cancelled INR Cancelled APTT (21.0-31.0) Seconds PTT Ratio Sodium 137 (136-145) mmol/L Potassium 3.9 (3.5-5.1) mmol/L Chloride 107 (98-107) mmol/L Carbon Dioxide 22 (21-32) mmol/L Anion Gap 8.0 (3-11) BUN 13 (7-18) mg/dl Creatinine 0.73 (0.6-1.4) mg/dl Est Cr Clr Drug Dosing 136.0 ml/min Est GFR ( Amer) 116.0 Est GFR (Non-Af Amer) 100.1 BUN/Creatinine Ratio 17.1 (10-20) Glucose 132 H (70-99) mg/dl Lactate (0.4-2.0) mmol/L Calcium 9.0 (8.5-10.1) mg/dl Total Bilirubin 1.2 H (0.2-1) mg/dl AST 140 H (15-37) U/L ALT 365 H (12-78) U/L Alkaline Phosphatase 171 H (45-117) U/L Total Protein 8.0 (6.4-8.2) gm/dl Albumin 3.8 (3.4-5.0) gm/dl Globulin 4.2 H (2.5-4.0) gm/dl Albumin/Globulin Ratio 0.9 (0.9-2) Lipase 230 (73-393) U/L Procalcitonin (0-0.5) ng/ml Specimen Hemolysis Urine Color Yellow Urine Appearance Clear (Clear) Urine pH 6.5 (4.5-7.5) Ur Specific [place] 1.034 H (1.000-1.030) Urine Protein Negative (Negative) Urine Glucose (UA) Negative (Negative) Urine Ketones 1+ H (Negative) Urine Blood Negative (Negative) Urine Nitrite Negative (Negative) Urine Bilirubin Negative (Negative) Urine Urobilinogen Negative (Negative) Ur Leukocyte Esterase Negative (Negative) 12/22/18 Range/Units 07:45 WBC 11.47 H (4.8-10.8) K/uL RBC 5.33 (4.7-6.1) M/uL Hgb 15.6 (14.0-18.0) g/dL Hct 46.0 (42-52) % MCV 86.3 (80-100) fL MCH 29.3 (25-34) pg MCHC 33.9 (32-36) g/dL RDW Std Deviation 46.7 H (36.4-46.3) fL RDW Coeff of Bre 14.8 H (11.5-14.5) % Plt Count 126 L (130-400) K/uL MPV 10.9 H (7.4-10.4) fL Immature Gran % (Auto) 0.3 % Neut % (Auto) 83.2 % Lymph % (Auto) 8.1 % [place] % (Auto) 7.3 % Eos % (Auto) 1.0 % Baso % (Auto) 0.1 % Immature Gran # (Auto) 0.03 H (0.00-0.02) K/uL Neut # (Auto) 9.54 H (1.4-6.5) K/uL Lymph # (Auto) 0.93 L (1.2-3.4) K/uL [place] # (Auto) 0.84 H (0.11-0.59) K/uL Eos # (Auto) 0.12 (0-0.5) K/uL Baso # (Auto) 0.01 (0-0.2) K/uL PT INR APTT (21.0-31.0) Seconds PTT Ratio Sodium (136-145) mmol/L Potassium (3.5-5.1) mmol/L Chloride (98-107) mmol/L Carbon Dioxide (21-32) mmol/L Anion Gap (3-11) BUN (7-18) mg/dl Creatinine (0.6-1.4) mg/dl Est Cr Clr Drug Dosing ml/min Est GFR ( Amer) Est GFR (Non-Af Amer) BUN/Creatinine Ratio (10-20) Glucose (70-99) mg/dl Lactate (0.4-2.0) mmol/L Calcium (8.5-10.1) mg/dl Total Bilirubin (0.2-1) mg/dl AST (15-37) U/L ALT (12-78) U/L Alkaline Phosphatase (45-117) U/L Total Protein (6.4-8.2) gm/dl Albumin (3.4-5.0) gm/dl Globulin (2.5-4.0) gm/dl Albumin/Globulin Ratio (0.9-2) Lipase (73-393) U/L Procalcitonin (0-0.5) ng/ml Specimen Hemolysis Urine Color Urine Appearance (Clear) Urine pH (4.5-7.5) Ur Specific [place] (1.000-1.030) Urine Protein (Negative) Urine Glucose (UA) (Negative) Urine Ketones (Negative) Urine Blood (Negative) Urine Nitrite (Negative) Urine Bilirubin (Negative) Urine Urobilinogen (Negative) Ur Leukocyte Esterase (Negative) Diagnostic Findings CT Abdomen/ pelvis w/ IV con. (12/22/2018) FINDINGS: Interstitial parenchymal prominence both lung bases. Findings are prior gastric bypass type procedure. Liver and spleen are uniform. Edematous change of the gallbladder wall with at least [id number] pericho lecystic soft tissue edematous change. This appearance suggests acute cholecystitis based on ultrasound findings describing gallstones. There is mild reactive wall edema of the second component of the duodenal sweep. The kidneys demonstrate small cortical nonobstructing calcifications on the right. There are negative for hydronephrosis. Nonobstructive bowel pattern. Fat-containing periumbilical hernia. This shows no evidence for bowel containment or obstructive characteristics. Chronic sigmoid diverticulosis. No evidence for acute superimposed diverticulitis. Trace amount of reactive free fluid within the pelvic cul-de-sac. IMPRESSION: 1. Findings consistent with acute cholecystitis. 2. Mild reactive wall edema of the descending aspect of the duodenal sweep. 3. Periumbilical hernia containing fat exclusively. 4. Bibasilar interstitial parenchymal prominence of the lungs. U/S Abdomen () FINDINGS: Pancreas: Poorly seen due to overlying bowel content Liver: Mild fatty replacement Gallbladder: Gallstones. Gallbladder wall. Normal 3 mm. CBD: 8 mm Right kidney: No hydronephrosis. IMPRESSION: 1. Gallstones. 2. Gallbladder wall is top normal at 3 mm. 3. Fatty replacement of liver. 4. Mild distention of the common bile duct to 8 mm. MRCP (12/22/2018) IMPRESSION: 1. Acute cholecystitis. 2. Gallstone filled gallbladder with considerable pericholecystic infiltrative change and/or edematous change. 3. Trace perihepatic ascites. 4. 2, possibly 3, small filling defects of the distal common duct consistent with choledocholithiasis. ECG Additional Comments: ECG 12/22/2018 at 12:23 - NSR w/ HR 66 (essentially unchanged from previous, per PCP record from 12/01/2017) Echo (per reviewed PCP records from 12/01/2017) - mod LVH, EF 55-60%, mod dilatation of left atrium Code Status & VTE Plan Code Status Full code - discussed with the pt at the bedside VTE Prophylaxis Plan VTE Prophylaxis will be ordered: Yes Reason for no VTE drug order: Contraindicated (upcoming procedure/surgery)
[2018-12-22] MEDS: CIPROFLOXACIN 400 MG/200 ML BAG IV SCH (14:21)
[2018-12-22] MEDS ORDERED: GLUCAGON FOR INJ 1 MG VIAL ONE ×3 (16:08→20:02)
[2018-12-22] MEDS ORDERED: INDOMETHACIN 50 MG SUPP PR ONE (16:49)
--- NOTE | 2018-12-22 16:55 | History & Physical Bridge Note ---
Date of Service December 22, 2018 History & Physical Bridge Note I have examined the patient, reviewed the History & Physical and in the interval since the performance of the History & Physical I have noted the following changes of clinical significance: no changes noted ERCP today
[2018-12-22] MEDS ORDERED: ePHEDrine sulfate 50 MG/ML AMP IV PRN (17:06)
[2018-12-22] MEDS ORDERED: fentaNYL citrate 100 MCG/2 ML VIAL IV PRN (17:06)
[2018-12-22] MEDS ORDERED: ATROPINE SULFATE 0.1 MG/ML 10ML SYR IV PRN (17:06)
--- NOTE | 2018-12-22 17:16 | Anesthesiology Consultation ---
Date of Service December 22, 2018 Assessment & Plan ASA ASA3 Proposed Anesthesia Anesthesia Type: General Risk / Benefits Reviewed With: PT / POA / Parent / Guardian, Accepts Plan and Informed Consent Obtained History Surgery Operation Date: 12/22/18 13:05 Proposed Procedures p Endoscopic Retrograde Cholangiopancreatogram - Jael Campbell MD Height/Weight Height: 5 ft 10 in Weight: 116.7 kg Allergies Allergy/AdvReac Type Severity Reaction Status Date / Time No Known Allergies Allergy Unverified 12/22/18 10:29 Medications Home Medications Medication Instructions Recorded Confirmed Last Taken allopurinol [Zyloprim] 300 mg PO QPM 12/22/18 12/22/18 12/21/18 esomeprazole magnesium [Nexium] 40 mg PO QPM 12/22/18 12/22/18 12/21/18 hydrocodone-acetaminophen [[place]] 1 tab PO Q6H PRN 12/22/18 12/22/18 12/21/18 Active Medications Generic Name Dose Route Start Last Admin Trade Name Freq PRN Reason Stop Dose Admin Hydromorphone HCl 0.5 mg 12/22/18 13:54 12/22/18 15:56 Dilaudid IV 01/05/19 12:17 0.5 mg Q1H PRN Administration Pain Sodium Chloride 1,000 mls @ 100 mls/hr 12/22/18 13:39 12/22/18 13:50 Nss 1000ml IV 01/21/19 13:38 100 mls/hr .Q10H ANTON Administration Ciprofloxacin 400 mg in 200 mls @ 100 mls/hr 12/22/18 14:00 12/22/18 16:33 Cipro IV 12/24/18 13:59 Infused Q12H ANTON Infusion Protocol Ioversol 94 ml 12/22/18 08:44 12/22/18 08:44 Optiray 320 100ml IV 12/26/18 08:43 94 ml ONCE PRN Administration Interaction Checking NPO Date Last Intake of Fluids: 12/21/18 Time Last Intake of Fluids: 18:00 Last Intake of Fluids Comment: iced tea/water Date Last Intake of Solids: 12/21/18 Time Last Intake of Solids: 18:00 Last Intake of Solids Comment: meatloaf/corn Past Medical History Medical History Obesity (BMI 35.0-39.9 without comorbidity) (Chronic) ROSALVA (obstructive sleep apnea) (Resolved) Gout (Chronic) History of gastroesophageal reflux (GERD) (Chronic) Kidney stones Exercise / Class Metabolic Activity II 4-5 Yardwork/Stairs/Walk up hill Past Family History Family History Mother Coronary heart disease Stroke Father Liver cirrhosis Liver cancer Sister Breast cancer Uncle Heart disease Past Surgical History Surgical History History of appendectomy History of gastrointestinal surgery Past Anesthesia History No Hx of Anesthesia Complications and No Family Hx of Anesthesia Complications History of PONV No Hx of PONV and No Hx of Motion Sickness Social History Smoking Status: Former smoker tobacco type: cigarettes Do You Dip or Chew Tobacco: No Hx Alcohol Use: Yes Alcohol type: beer alcohol intake frequency: holidays/special occasions only Hx Substance Use: No substance use type: does not use Review of Systems lost weight leading to improvement in rosalva. no longer uses cpap. denies, chills, cp, sob, cough Physical Exam Vital Signs Last Vital Signs Temp 38.1 C H 12/22/18 16:57 Pulse 67 12/22/18 16:57 Resp 18 12/22/18 16:57 BP 153/54 H 12/22/18 16:57 Pulse Ox 96 12/22/18 16:57 Testing Laboratory Results 12/22/18 07:45 12/22/18 07:45 PT 11.8 Seconds (9.0-12.0) 12/22/18 09:30 INR 1.2 (0.9-1.1) H 12/22/18 09:30 APTT 27.8 Seconds (21.0-31.0) 12/22/18 09:30 Urine Color Yellow 12/22/18 08:55 Urine Appearance Clear (Clear) 12/22/18 08:55 Urine pH 6.5 (4.5-7.5) 12/22/18 08:55 Ur Specific [place] 1.034 (1.000-1.030) H 12/22/18 08:55 Urine Protein Negative (Negative) 12/22/18 08:55 Urine Glucose (UA) Negative (Negative) 12/22/18 08:55 Urine Ketones 1+ (Negative) H 12/22/18 08:55 Urine Nitrite Negative (Negative) 12/22/18 08:55 Ur Leukocyte Esterase Negative (Negative) 12/22/18 08:55
[2018-12-22] MEDS: metroNIDAZOLE 500 MG/100 ML BAG IV SCH ×2 (17:21→23:25)
[2018-12-22] MEDS ORDERED: PROPOFOL IV EMULSION 10 MG/ML 20 ML VIAL IV ONE (17:36)
[2018-12-22] MEDS ORDERED: SUCCINYLCHOLINE CHLORIDE 20 MG/ML 10 ML VIAL ONE (17:37)
[2018-12-22] MEDS ORDERED: fentaNYL citrate 100 MCG/2 ML VIAL ONE (17:47)
[2018-12-22] MEDS ORDERED: ONDANSETRON INJ 2 MG/ML 2 ML VIAL ONE (18:30)
--- NOTE | 2018-12-22 18:57 | Operative Report ---
Post Operative Report Pre & Post Diagnosis Operation Date: 12/22/18 13:05 Pre-Op Diagnosis: common bile duct stone Post-Op Diagnosis: common bile duct stone I identified the patient and participated in the time-out.: Yes Procedure Operation Date: 12/22/18 13:05 Actual Procedures p Endoscopic Retrograde Cholangiopancreatogram, sphincterotomy, balloon sweep, and balloon dilation(Not Applicable) - Jael Campbell MD Surgeon Jael Campbell MD Hotel Maintenance Engineer none Estimated Blood Loss 0 Findings See Below (CBD stone removed. ) Specimens None Description of Procedure ERCP I attest to the content of the Intraoperative Record and any orders documented therein. Any exceptions are noted below.
--- NOTE | 2018-12-22 19:09 | GI REPORT ---
Patient Name: Hung Wagner Procedure Date: 12/22/2018 5:16 PM Date of : 1955 Admit Type: Inpatient Age: 63 Gender: Male Attending MD: Jael Campbell MD Procedure: ERCP Providers: Jael Campbell MD Referring MD: Jonathon Patel Md, Carolyn Patel M.d., Vicky Dowd Md Indications: Abdominal pain of suspected biliary origin, Bile duct stone on magnetic resonance cholangiopancreatography, For therapy of bile duct stone(s), Elevated liver enzymes Medicines: Propofol per Anesthesia Complications: No immediate complications. Estimated Blood Loss: Estimated blood loss: none. Procedure: Pre-Anesthesia Assessment: - Prior to the procedure, a History and Physical was performed, and patient medications and allergies were reviewed. The patient is competent. The risks and benefits of the procedure and the sedation options and risks were discussed with the patient. All questions were answered and informed consent was obtained. Patient identification and proposed procedure were verified by the physician and the nurse in the procedure room. Mental Status Examination: alert and oriented. Airway Examination: normal oropharyngeal airway and neck mobility. Respiratory Examination: clear to auscultation. CV Examination: normal. ASA Grade Assessment: III - A patient with severe systemic disease. After reviewing the risks and benefits, the patient was deemed in satisfactory condition to undergo the procedure. The anesthesia plan was to use general anesthesia. Immediately prior to administration of medications, the patient was re-assessed for adequacy to receive sedatives. The heart rate, respiratory rate, oxygen saturations, blood pressure, adequacy of pulmonary ventilation, and response to care were monitored throughout the procedure. The physical status of the patient was re-assessed after the procedure. After obtaining informed consent, the scope was passed under direct vision. Throughout the procedure, the patient's blood pressure, pulse, and oxygen saturations were monitored continuously. The Scope was introduced through the mouth, and advanced to the duodenum and used to inject contrast into the bile duct. The ERCP was accomplished without difficulty. The patient tolerated the procedure well. Findings: The special education classroom aide film was normal. The esophagus was successfully intubated under direct vision. The scope was advanced to a normal major papilla in the descending duodenum without detailed examination of the pharynx, larynx and associated structures, and upper GI tract. The upper GI tract was grossly normal. A 0.035 inch straight Acrobat wire was passed into the biliary tree from the first attempt. The Fusion MALDONADO-Metcalfe sphincterotome was passed over the guidewire and the bile duct was then deeply cannulated. Contrast was injected. I personally interpreted the bile duct images. Ductal flow of contrast was adequate. Image quality was adequate. Contrast extended to the main bile duct. The main bile duct was mildly dilated. The largest diameter was 8 mm. Biliary sphincterotomy was made with a monofilament traction (standard) sphincterotome using ERBE electrocautery. There was no post-sphincterotomy bleeding. Dilation of the common bile duct with an 8 mm balloon dilator was successful. The biliary tree was swept with an 11.5 mm balloon starting at the bifurcation. Sludge was swept from the duct. One stone was removed. No stones remained. Occlusion cholangiogram showed no filling defects. There was no filling of the gallbladder. Indomethacin 100 mg was given via suppository to decrease the risk of post-ERCP pancreatitis (PEP). Impression: - Choledocholithiasis was found. Complete removal was accomplished by biliary sphincterotomy, sphincteroplasty and balloon extraction. Recommendation: - Return patient to hospital [facility] for ongoing care. - Avoid aspirin and nonsteroidal anti-inflammatory medicines for 5 days. - Follow up with surgery for cholecystectomy. - Recall GI if needed. Jael Campbell MD 12/22/2018 7:08:50 PM This report has been signed electronically. Note Initiated On: 12/22/2018 5:16 PM Number of Addenda: 0 I attest to the content of the Intraoperative Record and orders documented therein, exceptions below {[id number]}
--- NOTE | 2018-12-22 19:22 | Fluoroscopy Report ---
INTRAOPERATIVE RADIOGRAPHS CLINICAL HISTORY: ERCP procedure. Cholecystitis. Fluoroscopy time: 1 minute 29 seconds. FINDINGS: 17 spot fluoroscopic views from an ERCP procedure are correlated with MRCP dated 12/22/2018 . There is cannulation of the common bile duct. The common duct is top normal in caliber. There is no significant intrahepatic biliary ductal dilatation. A balloon sweep of the common duct is performed. No filling defects are identified in the common bile duct on the final images. IMPRESSION: Intraoperative ERCP images as above. Electronically signed by: Esteban Hernandez M.D. 12/22/2018 7:21 PM
--- NOTE | 2018-12-22 19:46 | Anesthesiology Progress Note ---
Date of Service December 22, 2018 Anesthesia Post Procedure Vital Signs Vital Signs: Temp Pulse Pulse Pulse Resp BP BP 12/22/18 19:35 99 H 16 128/73 12/22/18 19:25 92 H 16 126/74 12/22/18 19:15 99 H 16 136/81 12/22/18 19:09 37.0 C 100 H 18 126/74 12/22/18 16:57 38.1 C H 67 18 153/54 H 12/22/18 15:02 37.3 C 16 138/87 12/22/18 13:53 36.9 C 75 18 151/92 H 12/22/18 13:40 36.9 C 75 18 151/92 H 12/22/18 13:10 77 16 160/98 H 12/22/18 10:31 73 28 H 161/85 H 12/22/18 10:01 76 21 172/94 H 12/22/18 09:30 70 20 183/106 H 12/22/18 09:00 72 19 150/121 H 12/22/18 08:59 73 25 H 168/90 H 12/22/18 07:56 23 121/91 12/22/18 06:44 36.8 C 93 H 20 134/100 Pulse Ox 12/22/18 19:35 95 12/22/18 19:25 96 12/22/18 19:15 96 12/22/18 19:09 96 12/22/18 16:57 96 12/22/18 15:02 97 12/22/18 13:53 97 12/22/18 13:40 97 12/22/18 13:10 98 12/22/18 10:31 94 12/22/18 10:01 90 12/22/18 09:30 92 12/22/18 09:00 12/22/18 08:59 12/22/18 07:56 93 12/22/18 06:44 96 Pain Intensity Right Upper Abdomen: Pain Intensity: 9 Transfer of Care Handoff Completed per policy Notes Mental Status: alert / awake / arousable and participated in evaluation Patient Amnestic to Procedure: Yes Nausea / Vomiting: adequately controlled Pain: adequately controlled Airway Patency, RR, SpO2: stable & adequate BP & HR: stable & adequate Hydration State: stable & adequate Anesthetic Complications: no major complications apparent and Pt Satisfied with anesthetic care
[2018-12-23] MEDS: CIPROFLOXACIN 400 MG/200 ML BAG IV SCH ×2 (02:35→16:34)
[2018-12-23 06:35] LABS: Hematocrit (blood only) 44.4 % (42-52); Hemoglobin 14.5 g/dL (14.0-18.0); Mean Corpuscular Hemoglobin 29.1 pg (25-34); Mean Corpuscular Hgb Conc 32.7 g/dL (32-36); Mean Corpuscular Volume 89.2 fL (80-100); Mean Platelet Volume 10.2 fL (7.4-10.4); Platelet Count 104 K/uL (130-400); RDW Coefficient of Variation 14.9 % (11.5-14.5); RDW Standard Deviation 48.2 fL (36.4-46.3); Red Blood Count 4.98 M/uL (4.7-6.1); White Blood Count 12.56 K/uL (4.8-10.8)
[2018-12-23 07:22] LABS: Albumin Level 2.9 gm/dl (3.4-5.0); BUN Creatinine Ratio 15.6 (10-20); Bilirubin Direct 0.4 mg/dl (0-0.2); Calcium 8.3 mg/dl (8.5-10.1); Creatinine Clr Calc Pharmacy 110.3 ml/min; Est GFR (African American) 106.5; Est GFR (Non-African American) 91.9; Magnesium 1.8 mg/dl (1.8-2.4); Potassium 3.7 mmol/L (3.5-5.1)
[2018-12-23 07:25] LABS: Bilirubin,Total 1.2 mg/dl (0.2-1); Phosphorus 3.4 mg/dl (2.5-4.9); Total Protein 6.7 gm/dl (6.4-8.2)
[2018-12-23] MEDS: metroNIDAZOLE 500 MG/100 ML BAG IV SCH ×3 (07:55→23:18)
[2018-12-23] MEDS: HYDROmorphone INJ 0.5 MG/0.5 ML SYR IV PRN ×2 (08:02→20:27)
--- NOTE | 2018-12-23 09:02 | History & Physical Bridge Note ---
Date of Service December 23, 2018 History & Physical Bridge Note I have examined the patient, reviewed the History & Physical and in the interval since the performance of the History & Physical I have noted the following changes of clinical significance: no changes noted
--- NOTE | 2018-12-23 09:02 | Surgery Progress Note ---
Date of Service S/P ERCP, pt feels better, less abdominal pain, no nausea, no vomiting, December 23, 2018 Assessment & Plan (1) Acute abdominal pain: pt is a 63 year-old male who presents to Er with one day history acute RUQ pain, IMP: acute abdominal pain, acute cholecystitis, cholelithiasis, possible CBD stone, cholangitis. Plan, recommend: hospitalist admit pt to hospital, MRCP, consult GI, IV fluid, antibiotic, control pain, repeat labs in morning, possible do cholecystectomy on Tuesday if no CBD stone. Thanks, will F/U. pt and his agree with the plan, I answered all questions, D/W ER attending, 12/23/18 9:00am I got a call from GI doctor, who recommend to do cholecystectomy, I recommend to do laparoscopic cholecystectomy, possible open or cholangiogram, D/W benefits, risks and alternatives of the surgery, the risks - infection, bleeding, injury CBD, MA, , pt understood, he agrees with the surgery, I answered all questions, (2) Acute cholecystitis due to biliary calculus: Physical Exam Constitutional: WD/WN, vitals as above well developed and well nourished ENMT: external ear and nose normal, oropharynx normal Neck: trachea midline, no thyromegaly Respiratory: normal respiratory effort, lungs clear to auscultation normal respiratory effort Cardiovascular: RRR, no murmur, no edema Rate/Rhythm: regular rate and regular rhythm Heart Sounds: normal S1 and normal S2 Musculoskeletal: no cyanosis or clubbing, extremities motor strength 5/5 Skin: no rashes, warm and dry Neurologic: patellar DTR's 2+ bilat, sensation intact Psychiatric: Orientation: alert and oriented x 3 Lymphatic: no cervical or axillary lymphadenopathy Results & Data Vital Signs (Past 12 Hours) Vital Signs Temp Pulse Pulse Resp BP Pulse Ox 12/23/18 07:51 36.9 C 74 18 123/74 91 12/23/18 03:57 36.7 C 67 16 107/67 94 12/22/18 23:24 37.1 C 100 H 16 125/73 92 12/22/18 22:16 36.9 C 80 16 119/73 96 12/22/18 21:22 37 C 88 16 116/70 97
--- NOTE | 2018-12-23 09:51 | Gastroenterology Progress Note ---
Date of Service December 23, 2018 Supervising Physician Co-Signing Physician Notes 63 yo male admitted with ruq pain, wbc count, s/p ercp with findings of choledocholithiasis. Doing well this morning. GI will sign off. Further plan for laparoscopic cholecystectomy as per surgery. Subjective Patient sleepy but arousable this morning No acute complaints S/p ERCP yesterday evening Review of Systems Review of Systems: All systems reviewed & are unremarkable except as noted in HPI & below Physical Exam Physical Exam: Well nourished white male in nad Eyes: PERRL, conjunctivae normal, anicteric sclerae Gastrointestinal (Abdomen): normal bowel sounds, soft, nontender, no hepatosplenomegaly Neurologic: CN's II-XI intact bilaterally Results & Data Vital Signs (Past 12 Hours) Vital Signs Temp Pulse Pulse Resp BP Pulse Ox 12/23/18 07:51 36.9 C 74 18 123/74 91 12/23/18 03:57 36.7 C 67 16 107/67 94 12/22/18 23:24 37.1 C 100 H 16 125/73 92 12/22/18 22:16 36.9 C 80 16 119/73 96 Labs reviewed - overall stable lft's
--- NOTE | 2018-12-23 09:51 | Hospitalist Progress Note ---
Date of Service December 23, 2018 Assessment & Plan (1) Acute cholecystitis due to biliary calculus: Patient presents with epigastric and right upper quadrant abdominal pain, nausea, vomiting for 48 hours [employer] intermittently Abdominal ultrasound and CT obtained in the ED, U/S showing gallstones, CT consistent with edematous changes of gallbladder wall and ann-cholecystic soft tissue, consistent with acute cholecystitis Surgery consulted, plan for cholecystectomy over the weekend. Pt has low risk for intra- and post-operative cardiac complication, should proceed for surgery, no further work -up needed. Choledocholithiasis identified on MRCP GI on case, s/p ERCP Risk for ascending cholangitis d/t above, +chills and mildly elevated WBC, patient started on IV antibiotics (Ciprofloxacin and Flagyl) and IV fluids For pain, patient is on 0.5 mg Dilaudid IV q. one hour, will continue to reassess his need for pain meds and will adjust as necessary (2) Elevated LFTs: Most likely secondary to above (3) Obesity (BMI 35.0-39.9 without comorbidity): In the past patient was morbidly obese, with BMI greater than 50 Only recently underwent gastric sleeve bypass surgery and lost over 100 pounds His current BMI is 37 which is in the obese category, class II however much improved from previous Patient plans to continue with weight loss management after discharge (4) ROSALVA (obstructive sleep apnea): Previously patient was morbidly obese, with BMI greater than 50, in the past he used CPAP Stopped using CPAP after conversation with his PCP, 1 month ago We will continue to monitor while inpatient, will provide supplemental O2 via NC as needed (5) History of gastroesophageal reflux (GERD): At home takes PPI, will hold for now as patient is n.p.o. Plan to resume after discharge (6) Gout: At home takes allopurinol, will hold for now as patient is n.p.o. Plan to resume after discharge (7) DVT prophylaxis: SCDs No pharm. DVT ppx, d/t upcoming procedure and surgery (8) Discharge planning issues: No discharge issues identified on admission. Pt lives at home w/his , should be able to return back home after his hospitalization. ROS-No Headache, No Visual Changes, No Nausea, No Vomiting, No Fever, No Chills, No Neck Pain or Stiffness, No Chest Pain, No Palpitations, No SOB, No AVILEZ, No Cough, No Sputum, No Wheezing, No Abdominal Pain, No Diarrhea, No Hematemesis, No Hemoptysis, No Unexpected Weight Loss, No Flank pain, No Melena, No Hematochezia, No Frequency, No Urgency, No Burning, No Hematuria, No Rashes, No Diaphoresis. Appetite is Normal Physical Exam Gen-AAO x 3, NAD, Afebrile Head-NCAT, EOMI, PERRLA, Anicteric Sclera, No Posterior Pharyngeal Erythema Neck-Supple, No JVD, No Thyromegaly, No Masses, No LAD, No Bruits Lungs-Clear to Auscultation Bilaterally, No Rales, No Rhonchi, No Wheezing, No Crepitus Chest-No S4, +S1, +S2, No S3, No Murmurs, No Rubs, No Gallops, No Ectopy Abdomen-Soft, Bowel Sounds Present, Non Tender, Non Distended, No Hepatomegaly, No Splenomegaly, No Palpable Masses, No Rebound, No Rigidity, No Guarding Musculoskeletal-Full Range of Motion Bilaterally, No CVAT Extremities-No Cyanosis, No Clubbing, No Edema Nuero-Cranial Nerves II-XII grossly intact, Motor WNL, DTRs WNL, Strength WNL, Non Focal Psych-Normal Mood labs checked Results & Data Vital Signs (Past 12 Hours) Vital Signs Temp Pulse Pulse Resp BP Pulse Ox 12/23/18 07:51 36.9 C 74 18 123/74 91 12/23/18 03:57 36.7 C 67 16 107/67 94 12/22/18 23:24 37.1 C 100 H 16 125/73 92 12/22/18 22:16 36.9 C 80 16 119/73 96
[2018-12-23] MEDS ORDERED: MIDAZOLAM HCL 1 MG/ML 2ML VIAL ONE (10:28)
[2018-12-23] MEDS ORDERED: PROPOFOL IV EMULSION 10 MG/ML 20 ML VIAL IV ONE (10:28)
[2018-12-23] MEDS ORDERED: fentaNYL citrate 100 MCG/2 ML VIAL ONE ×3 (10:28→13:42)
[2018-12-23] MEDS ORDERED: ROCURONIUM BROMIDE 10 MG/ML 5 ML VIAL ONE ×2 (10:28→14:56)
[2018-12-23] MEDS ORDERED: ONDANSETRON INJ 2 MG/ML 2 ML VIAL ONE (10:28)
[2018-12-23] MEDS ORDERED: LIDOCAINE HCL 2% 2 ML VIAL/AMP(20MG/ML) INFIL ONE (10:28)
[2018-12-23] MEDS ORDERED: LARYING-O-JET KIT (LTA) ONE (10:32)
[2018-12-23] MEDS ORDERED: BACITRACIN OINT 15 GM TUBE ONE (11:34)
[2018-12-23] MEDS ORDERED: LIDOCAINE HCL 1% 20 ML VIAL ONE (11:35)
[2018-12-23] MEDS ORDERED: BUPIVACAINE 0.5 % 5 MG/1 ML MPF 30ML VIAL ONE (11:35)
--- NOTE | 2018-12-23 12:00 | Anesthesiology Consultation ---
Date of Service December 23, 2018 Assessment & Plan Chart Review Chart Review: Acceptable Risk for Surgery and Patient NOT seen in Pre Admission Testing History Surgery Operation Date: 12/22/18 13:05 Proposed Procedures p Endoscopic Retrograde Cholangiopancreatogram - Jael Campbell MD Operation Date: 12/23/18 11:00 Proposed Procedures p Laparoscopic Cholecystectomy - Wilmer Dillard MD Height/Weight Height: 5 ft 10 in Weight: 116.7 kg Allergies Allergy/AdvReac Type Severity Reaction Status Date / Time No Known Allergies Allergy Unverified 12/22/18 10:29 Medications Home Medications Medication Instructions Recorded Confirmed Last Taken allopurinol [Zyloprim] 300 mg PO QPM 12/22/18 12/22/18 12/21/18 esomeprazole magnesium [Nexium] 40 mg PO QPM 12/22/18 12/22/18 12/21/18 hydrocodone-acetaminophen [Beemer] 1 tab PO Q6H PRN 12/22/18 12/22/18 12/21/18 Active Medications Generic Name Dose Route Start Last Admin Trade Name Freq PRN Reason Stop Dose Admin Hydromorphone HCl 0.5 mg 12/22/18 13:54 12/23/18 08:02 Dilaudid IV 01/05/19 12:17 0.5 mg Q1H PRN Administration Pain Sodium Chloride 1,000 mls @ 100 mls/hr 12/22/18 13:39 12/23/18 09:39 Nss 1000ml IV 01/21/19 13:38 100 mls/hr .Q10H [facility] Infusion Ciprofloxacin 400 mg in 200 mls @ 100 mls/hr 12/22/18 14:00 12/23/18 04:35 Cipro IV 12/24/18 13:59 Infused Q12H [facility] Infusion Protocol Metronidazole 500 mg in 100 mls @ 100 mls/hr 12/22/18 16:00 12/23/18 09:39 Flagyl IV 12/24/18 15:59 Infused Q8H [facility] Infusion Ioversol 94 ml 12/22/18 08:44 12/22/18 08:44 Optiray 320 100ml IV 12/26/18 08:43 94 ml ONCE PRN Administration Interaction Checking NPO Date Last Intake of Fluids: 12/22/18 Time Last Intake of Fluids: 18:00 Last Intake of Fluids Comment: iced tea/water Date Last Intake of Solids: 12/22/18 Time Last Intake of Solids: 18:00 Last Intake of Solids Comment: meatloaf/corn Past Medical History Medical History Obesity (BMI 35.0-39.9 without comorbidity) (Chronic) ROSALVA (obstructive sleep apnea) (Resolved) Gout (Chronic) History of gastroesophageal reflux (GERD) (Chronic) Kidney stones Exercise / Class Metabolic Activity II 4-5 Yardwork/Stairs/Walk up hill Past Family History Family History Mother Coronary heart disease Stroke Father Liver cirrhosis Liver cancer Sister Breast cancer Uncle Heart disease Past Surgical History Surgical History History of appendectomy History of gastrointestinal surgery Past Anesthesia History No Hx of Anesthesia Complications and No Family Hx of Anesthesia Complications History of PONV No Hx of PONV and No Hx of Motion Sickness Social History Smoking Status: Former smoker tobacco type: cigarettes Do You Dip or Chew Tobacco: No Hx Alcohol Use: Yes Alcohol type: beer alcohol intake frequency: holidays/special occasions only Hx Substance Use: No substance use type: does not use Physical Exam Vital Signs Last Vital Signs Temp 36.9 C 12/23/18 07:51 Pulse 74 12/23/18 07:51 Resp 18 12/23/18 07:51 BP 123/74 12/23/18 07:51 Pulse Ox 91 12/23/18 07:51 Testing Laboratory Results 12/23/18 06:15 12/23/18 06:15 PT 11.8 Seconds (9.0-12.0) 12/22/18 09:30 INR 1.2 (0.9-1.1) H 12/22/18 09:30 APTT 27.8 Seconds (21.0-31.0) 12/22/18 09:30 Urine Color Yellow 12/22/18 08:55 Urine Appearance Clear (Clear) 12/22/18 08:55 Urine pH 6.5 (4.5-7.5) 12/22/18 08:55 Ur Specific [place] 1.034 (1.000-1.030) H 12/22/18 08:55 Urine Protein Negative (Negative) 12/22/18 08:55 Urine Glucose (UA) Negative (Negative) 12/22/18 08:55 Urine Ketones 1+ (Negative) H 12/22/18 08:55 Urine Nitrite Negative (Negative) 12/22/18 08:55 Ur Leukocyte Esterase Negative (Negative) 12/22/18 08:55
[2018-12-23] MEDS ORDERED: ATROPINE SULFATE 0.1 MG/ML 10ML SYR IV PRN (12:02)
[2018-12-23] MEDS ORDERED: ePHEDrine sulfate 50 MG/ML AMP IV PRN (12:02)
[2018-12-23] MEDS ORDERED: fentaNYL citrate 100 MCG/2 ML VIAL IV PRN (12:02)
[2018-12-23] MEDS ORDERED: CEFAZOLIN 2000MG 2,000 MG/15 ML SYR IV ONE (12:28)
[2018-12-23] MEDS ORDERED: CEFAZOLIN 250 MG/ML 1 GM VIAL ONE (12:50)
[2018-12-23] MEDS ORDERED: NEOSTIGMINE METHYLSULFATE 5 MG/5 ML SYR ONE (13:33)
[2018-12-23] MEDS ORDERED: GLYCOPYRROLATE 0.2 MG/ML VIAL ONE (13:33)
[2018-12-23] MEDS ORDERED: KETOROLAC 30 MG/ML VIAL ONE (14:36)
--- NOTE | 2018-12-23 14:38 | Post Operative Brief Note ---
Immediate Post Op Note v1 Date of Surgery December 23, 2018 Pre & Post Diagnosis Operation Date: 12/22/18 13:05 Pre-Op Diagnosis: common bile duct stone Post-Op Diagnosis: common bile duct stone Operation Date: 12/23/18 11:00 Pre-Op Diagnosis: Acute Cholecystitis, cholelithiasis Post-Op Diagnosis: Acute Cholecystitis, cholelithiasis, gangrene gallbladder I identified the patient and participated in the time-out.: Yes Procedure Operation Date: 12/22/18 13:05 Actual Procedures p Endoscopic Retrograde Cholangiopancreatogram, sphincterotomy, balloon sweep, and balloon dilation(Not Applicable) - Jael Campbell MD Operation Date: 12/23/18 11:00 Actual Procedures p Laparoscopic Subtotal Cholecystectomy(Not Applicable) - Wilmer Dillard MD Surgeon Wilmer Dillard MD Pediatric Oncology Nurse surgical forceps fabricator Estimated Blood Loss 50 Findings Consistent with Post-Op Diagnosis significant inflammation on gallbladder wall, gangrene gallbladder Fluids 1500ml Specimens gallbladder Drains -Mac Drain (10mm flat) Anesthesia Type General Complications none Disposition Accompanied Patient To Recovery: Yes Disposition: Recovery Room Overlapping Procedure I was immediately available: during the entire case.
--- NOTE | 2018-12-23 15:28 | Anesthesiology Progress Note ---
Date of Service December 23, 2018 Anesthesia Post Procedure Vital Signs Vital Signs: Temp Pulse Pulse Resp BP Pulse Ox 12/23/18 15:25 87 16 109/70 95 12/23/18 15:15 36.8 C 90 17 119/69 95 12/23/18 15:05 82 16 122/74 96 12/23/18 14:55 88 16 121/68 96 12/23/18 14:49 37.1 C 82 12 131/73 96 12/23/18 07:51 36.9 C 74 18 123/74 91 12/23/18 03:57 36.7 C 67 16 107/67 94 12/22/18 23:24 37.1 C 100 H 16 125/73 92 12/22/18 22:16 36.9 C 80 16 119/73 96 12/22/18 21:22 37 C 88 16 116/70 97 12/22/18 20:39 37.0 C 88 16 124/75 95 12/22/18 19:45 37.0 C 96 H 16 129/74 95 12/22/18 19:35 99 H 16 128/73 95 12/22/18 19:25 92 H 16 126/74 96 12/22/18 19:15 99 H 16 136/81 96 12/22/18 19:09 37.0 C 100 H 18 126/74 96 12/22/18 16:57 38.1 C H 67 18 153/54 H 96 Pain Intensity Right Upper Abdomen: Pain Intensity: 3 Transfer of Care Handoff Completed per policy Notes Mental Status: alert / awake / arousable and participated in evaluation Patient Amnestic to Procedure: Yes Nausea / Vomiting: adequately controlled Pain: adequately controlled Airway Patency, RR, SpO2: stable & adequate BP & HR: stable & adequate Hydration State: stable & adequate Anesthetic Complications: no major complications apparent and Pt Satisfied with anesthetic care
--- NOTE | 2018-12-23 15:33 | Operative Report ---
DATE OF OPERATION: 12/23/2018 PREOPERATIVE DIAGNOSES: Acute cholecystitis, cholelithiasis, status post ERCP. POSTOPERATIVE DIAGNOSES: Acute cholecystitis, cholelithiasis, gangrene gallbladder. OPERATIVE PROCEDURE: Laparoscopic subtotal cholecystectomy. SURGEON: Wilmer Dillard MD. ANESTHESIA: General. ESTIMATED BLOOD LOSS: About 50 mL. FINDINGS: Significant inflammation on the gallbladder wall, gallbladder wall thickening and edema with gangrene gallbladder. COMPLICATIONS: None. INDICATIONS FOR THE PROCEDURE: This is a 63-year-old gentleman who was admitted to the hospital for acute cholecystitis and patient had a common bile duct stone. The patient had an ERCP yesterday and I recommended to do the laparoscopic cholecystectomy, possible open, possible cholangiogram. I did talk to the patient about the benefit, risk, alternate procedure. I indicated the risks may include but not limited to such as bleeding, infection, injury to common bile duct, myocardial infarction, DVT, stroke, and even . The patient understands. He signed the informed consent and I answered all questions. DETAILS OF PROCEDURE: We brought the patient to the OR, put the patient in the supine position. The patient received SCD on bilateral legs to prevent DVT. Also, patient received 2 grams of Ancef IV for prophylactic antibiotic. The patient received general anesthesia without difficulty. The abdomen was prepped and draped in routine sterile fashion. After time out, I injected local anesthesia by using 1% lidocaine mixed with 0.5% Marcaine just above the umbilicus. Then, I made a small incision just above the umbilicus, opened fascia and opened peritoneum under direct vision, put a Adriel trocar in, connected to CO2 to create pneumoperitoneum, flow rate is 6 liter per minute, pressure not more than 14 mmHg. Once we got a nice pneumoperitoneum, we put the camera in, looked around the abdomen, showing significant inflammation on the gallbladder wall with gallbladder gangrene and there is some pus material at the top of the liver. Then, we put another two 5 mm trocars on the right upper quadrant, one 12 trocar on the epigastric area. At this moment, we used suction; all of the pus fluid at the top of the liver and there was some pus fluid around the liver was suctioned out and again gangrene gallbladder had significant inflammation and we used decompression needle to puncture the gallbladder and suctioned some fluid out, but the gallbladder still with significant inflammation, wall thickening, and edema and we tried to find out the cystic duct. Based on the significant inflammation, we could not identify the cystic duct and at this moment, we decided to do a subtotal cholecystectomy. We used a harmonic to take down more than 90% of the gallbladder. Once we opened the gallbladder wall, they were more than 100 small stones, we removed all of the stones by grasper. Then we left a small tiny piece near the cystic duct of the gallbladder. We suctioned all of the stone and fluid in the remaining gallbladder, made sure no stone left behind and at this moment, we used the Endoloop to close the gallbladder opening near the cystic duct, then I used a 2-0 Vicryl to close the piece of the gallbladder opening continuous running, tied the suture and hemostasis obtained. No active bleeding, no bile leak at this moment. I put one 10 mm DEUCE drainage near the liver bed based on the significant inflammation and pus material near the liver. Then, we removed the piece of gallbladder and all stones through the catch bag. Then, we reinserted the Adriel trocar in, connected to CO2 and rechecked the abdomen, no bile leak, no active bleeding on the liver bed. Once we put in the 10 mm DEUCE drainage, we removed all trocars under direct vision. No active bleeding from the trocar site. Then using 2-0 silk, fixed the DEUCE on the skin. Then I closed the umbilical incision, fascial layer by using #1 Vicryl [id number] x2, closed subcutaneous layer by using 2-0 Vicryl interruptedly, closed skin by using 4-0 Vicryl continuous running, closed the epigastric area 12 trocar site fascial layer by using #1 Vicryl [id number] x2, closed subcutaneous layer by using 2-0 Vicryl interruptedly, closed skin by using 4-0 Vicryl interruptedly, closed another two 5 mm trocar site skin only by using 4-0 Vicryl. Then we put the dressing on. The patient tolerated the procedure well. All instrument, needle and sponge counts were correct x2 at the end of case. The patient was transferred to recovery room in stable condition. The specimen was sent to pathology. After procedure, I did talk to the patient's about the OR finding and procedure we did, she understands. I attest to the content of the Intraoperative Record and any orders documented therein. Any exception s are noted below.
[2018-12-23] MEDS ORDERED: LACTATED RINGER'S 1,000 ML IV SCH (15:35)
[2018-12-23] MEDS ORDERED: OXYCODONE/ACETAMINOPHEN 5mg/325mg TAB PO PRN (15:35)
[2018-12-23] MEDS: SODIUM CHLORIDE 0.9% 1000ML 1,000 ML IV SCH (15:46)
[2018-12-23] MEDS ORDERED: MAGNESIUM HYDROXIDE SUSP 30 ML UDC PO PRN (18:07)
[2018-12-23] MEDS: HYDROCODONE/ACETAMOPHEN 5/325MG TAB PO PRN ×2 (19:40→23:15)
[2018-12-23] MEDS ORDERED: PANTOprazole 40 MG TAB PO SCH (21:00)
[2018-12-23] MEDS ORDERED: allopurinoL 300 MG TAB PO SCH (21:00)
[2018-12-24] MEDS: HYDROmorphone INJ 0.5 MG/0.5 ML SYR IV PRN ×2 (00:11→05:46)
[2018-12-24] MEDS: CIPROFLOXACIN 400 MG/200 ML BAG IV SCH (02:08)
[2018-12-24 05:45] LABS: Basophils # (auto) 0.01 K/uL (0-0.2); Basophils % (auto) 0.1 %; Eosinophils # (auto) 0.15 K/uL (0-0.5); Eosinophils % (auto) 1.5 %; Hematocrit (blood only) 38.9 % (42-52); Hemoglobin 12.6 g/dL (14.0-18.0); Immature Granulocytes # (auto) 0.02 K/uL (0.00-0.02); Immature Granulocytes % (auto) 0.2 %; Lymphocytes # (auto) 1.23 K/uL (1.2-3.4); Mean Corpuscular Hemoglobin 28.7 pg (25-34); Mean Corpuscular Hgb Conc 32.4 g/dL (32-36); Mean Corpuscular Volume 88.6 fL (80-100); Monocytes # (auto) 0.83 K/uL (0.11-0.59); Monocytes % (auto) 8.1 %; Neutrophils # (auto) 8.03 K/uL (1.4-6.5); Neutrophils % (auto) 78.1 %; Platelet Count 117 K/uL (130-400); RDW Coefficient of Variation 14.9 % (11.5-14.5); RDW Standard Deviation 48.4 fL (36.4-46.3); Red Blood Count 4.39 M/uL (4.7-6.1); White Blood Count 10.27 K/uL (4.8-10.8)
[2018-12-24 06:07] LABS: Albumin Level 2.4 gm/dl (3.4-5.0); BUN Creatinine Ratio 22.9 (10-20); Calcium 8.3 mg/dl (8.5-10.1); Creatinine Clr Calc Pharmacy 106.7 ml/min; Est GFR (African American) 102.3; Est GFR (Non-African American) 88.3; Potassium 3.7 mmol/L (3.5-5.1)
[2018-12-24 06:19] LABS: Albumin Globulin Ratio 0.7 (0.9-2); Bilirubin Direct 0.3 mg/dl (0-0.2); Bilirubin,Total 0.7 mg/dl (0.2-1); Globulin 3.6 gm/dl (2.5-4.0)
[2018-12-24] MEDS: metroNIDAZOLE 500 MG/100 ML BAG IV SCH (08:12)
--- NOTE | 2018-12-24 09:36 | Surgery Progress Note ---
Date of Service F/U S/P laparoscopic subtotal cholecystectomy. POD 1 doing better, less abdominal pain, no nausea, no vomiting, DEUCE 50 cc, clear color December 24, 2018 Assessment & Plan (1) Acute abdominal pain: pt is a 63 year-old male who presents to Er with one day history acute RUQ pain, IMP: acute abdominal pain, acute cholecystitis, cholelithiasis, possible CBD stone, cholangitis. Plan, recommend: hospitalist admit pt to hospital, MRCP, consult GI, IV fluid, antibiotic, control pain, repeat labs in morning, possible do cholecystectomy on Tuesday if no CBD stone. Thanks, will F/U. pt and his agree with the plan, I answered all questions, D/W ER attending, 12/23/18 9:00am I got a call from GI doctor, who recommend to do cholecystectomy, I recommend to do laparoscopic cholecystectomy, possible open or cholangiogram, D/W benefits, risks and alternatives of the surgery, the risks - infection, bleeding, injury CBD, [place], , pt understood, he agrees with the surgery, I answered all questions, 12/24/2018 9:33am doing better, OOB I update about OR finding and the procedure pt had, pt understood, possible discharge today or tomorrow with DEUCE drainage. he can take a shower on , F/U dc in 1 week, (2) Acute cholecystitis due to biliary calculus: Subjective Patient sleepy but arousable this morning No acute complaints S/p ERCP yesterday evening Physical Exam Constitutional: WD/WN, vitals as above well developed and well nourished ENMT: external ear and nose normal, oropharynx normal Neck: trachea midline, no thyromegaly Respiratory: normal respiratory effort, lungs clear to auscultation Cardiovascular: RRR, no murmur, no edema Rate/Rhythm: regular rate and regular rhythm Gastrointestinal (Abdomen): soft, some incision pain, no rebound pain, BS + Musculoskeletal: no cyanosis or clubbing, extremities motor strength 5/5 Skin: no rashes, warm and dry Neurologic: awake Psychiatric: Orientation: alert and oriented x 3 Results & Data Vital Signs (Past 12 Hours) Vital Signs Temp Pulse Resp BP Pulse Ox 12/24/18 07:08 37.5 C 91 H 16 119/70 91 12/24/18 03:48 37.5 C 86 18 110/69 91 12/23/18 23:38 37 C 88 18 116/77 91 Laboratory Results Abnormal lab results 12/24/18 12/24/18 Range/Units 05:01 05:01 RBC 4.39 L (4.7-6.1) M/uL Hgb 12.6 L (14.0-18.0) g/dL Hct 38.9 L (42-52) % RDW Std Deviation 48.4 H (36.4-46.3) fL RDW Coeff of Bre 14.9 H (11.5-14.5) % Plt Count 117 L (130-400) K/uL MPV 11.0 H (7.4-10.4) fL Neut # (Auto) 8.03 H (1.4-6.5) K/uL Sierra # (Auto) 0.83 H (0.11-0.59) K/uL BUN 21 H (7-18) mg/dl BUN/Creatinine Ratio 22.9 H (10-20) Glucose 102 H (70-99) mg/dl Calcium 8.3 L (8.5-10.1) mg/dl Direct Bilirubin 0.3 H (0-0.2) mg/dl ALT 113 H (12-78) U/L Total Protein 6.0 L (6.4-8.2) gm/dl Albumin 2.4 L (3.4-5.0) gm/dl Albumin/Globulin Ratio 0.7 L (0.9-2)
--- NOTE | 2018-12-24 10:26 | Discharge Summary ---
Date of Service December 24, 2018 Admission HPI Per Admitting Provider 63-year-old male with history of morbid obesity, gout, GERD, sleep apnea, who presents with abdominal pain due to acute cholecystitis. Patient has had abdominal pain in his epigastric and right upper quadrant area for past 2 days. It first started after having dinner in the evening 2 nights ago. He describes pain as sharp, but not radiating anywhere, and intermittent. He was able to go to work the next day however pain resumed after having dinner again. He reports having pain between 8 and 10. He is also complaining of nausea, vomiting,and intermittent chills. At home he took hydrocodone, and then vomited after taking the medication. He reports having pain medications at home due to history of kidney stones. He denies any fevers, diarrhea, blood in the stool. He reports having chronic constipation. In the ED patient underwent abdominal ultrasound, which showed gallstones. He also had abdominal CT, which showed edematous changes of gallbladder wall and ann-cholecystic soft tissue, consistent with acute cholecystitis. Surgery was consulted and recommended obtaining MRCP. MRCP confirmed choledocholithiasis. GI was consulted for evaluation and possible ERCP, internal medicine/hospitalist team was consulted for admission and preop medical management. Of note: Pt has history of ex lap due to bowel perforation? (in 1976) and a somewhat recent history of gastric sleeve, done 11 months ago. Since his gastric sleeve surgery, patient lost more than 100 pounds, previously his BMI was over 50, current weight 259 pounds, BMI 37. In the past patient was also diagnosed with obstructive sleep apnea, and was using CPAP. About a month ago he stopped using it after conversation with his PCP. Admission Exam Per Admitting Provider Constitutional: + chills and + weight loss (s/p gastric sleeve surg. recently); no fever and no body aches Eyes: + corrective lenses; no eye pain and no photophobia Ear, Nose, Mouth, Throat: no dizziness, no nasal congestion, no facial pain, no sore throat, no dysphagia and no pain with swallowing Respiratory: no cough, no dyspnea and no dyspnea on exertion Cardiovascular: no chest pain, no dyspnea on exertion, no palpitations and no edema Gastrointestinal: + abdominal pain, + nausea, + vomiting and + constipation; no coffee ground emesis, no dysphagia and no blood in stools Genitourinary: no dysuria and no flank pain Musculoskeletal: no swelling and no myalgia Integumentary: no lesions, no sores and no dry skin Neurologic: no localized weakness, no loss of sensation, no tingling, no headache(s), no abnormal speech and no confusion Psychiatric: no depression, no anxiety and no confusion Endocrine: no polydipsia and no polyuria Hematologic / Lymphatic: no easy bleeding, no easy bruising and no night sweats Allergy / Immunological: no throat swelling and no urticaria Principal Diagnosis Cholecystitis Discharge Exam ROS-No Headache, No Visual Changes, No Nausea, No Vomiting, No Fever, No Chills, No Neck Pain or Stiffness, No Chest Pain, No Palpitations, No SOB, No AVILEZ, No Cough, No Sputum, No Wheezing, + Abdominal Pain, No Diarrhea, No Hematemesis, No Hemoptysis, No Unexpected Weight Loss, No Flank pain, No Melena, No Сергей tochezia, No Frequency, No Urgency, No Burning, No Hematuria, No Rashes, No Diaphoresis. Appetite is Normal Physical Exam Gen-AAO x 3, NAD, Afebrile Head-NCAT, EOMI, PERRLA, Anicteric Sclera, No Posterior Pharyngeal Erythema Neck-Supple, No JVD, No Thyromegaly, No Masses, No LAD, No Bruits Lungs-Clear to Auscultation Bilaterally, No Rales, No Rhonchi, No Wheezing, No Crepitus Chest-No S4, +S1, +S2, No S3, No Murmurs, No Rubs, No Gallops, No Ectopy Abdomen-Soft, Sore. Bowel Sounds Present, Non Tender, Non Distended, No Hepatomegaly, No Splenomegaly, No Palpable Masses, No Rebound, No Rigidity, No Guarding Musculoskeletal-Full Range of Motion Bilaterally, No CVAT Extremities-No Cyanosis, No Clubbing, No Edema Nuero-Cranial Nerves II-XII grossly intact, Motor WNL, DTRs WNL, Strength WNL, Non Focal Psych-Normal Mood Discharge Data Allergies Allergy/AdvReac Type Severity Reaction Status Date / Time No Known Allergies Allergy Unverified 12/22/18 10:29 Consultations 12/22/18 10:26 ED Decision to Admit Stat 12/22/18 12:48 Consult Gastroenterology Routine 12/22/18 15:38 Consult General Surgery Routine Procedures Performed Operation Date: 12/22/18 13:05 Actual Procedures p Endoscopic Retrograde Cholangiopancreatogram, sphincterotomy, balloon sweep, and balloon dilation(Not Applicable) - Jael Campbell MD Operation Date: 12/23/18 11:00 Actual Procedures p Laparoscopic Subtotal Cholecystectomy(Not Applicable) - Wilmer Dillard MD Ordered Studies 12/22/18 07:28 CT abd pelvis IV con only Stat 12/22/18 07:41 US abdomen limited Stat 12/22/18 11:10 MR MRCP Stat 12/22/18 16:57 FL ERCP biliary ductal Routine Current Diagnoses Obesity, unspecified (12/23/18) Obstructive sleep apnea (adult) (pediatric) (12/23/18) Calculus of gallbladder with acute cholecystitis without obstruction (12/23/18) Gout, unspecified (12/23/18) Unspecified abdominal pain (12/23/18) Abnormal results of liver function studies (12/23/18) Encounter for administrative examinations, unspecified (12/23/18) Encounter for prophylactic measures, unspecified (12/23/18) Personal history of other diseases of the digestive system (12/23/18) Allergies No Known Allergies Allergy (Unverified 12/22/18 10:29) Height/Weight/Isolation Height 5 ft 10 in Weight 116.7 kg Chemistry 12/23/18 12/24/18 06:15 05:01 Sodium 139 139 Potassium 3.7 3.7 Chloride 105 107 Carbon Dioxide 27 26 Anion Gap 7.0 6.0 BUN 14 21 H Creatinine 0.90 0.93 Glucose 105 H 102 H Hospital Course (1) Acute cholecystitis due to biliary calculus: Patient presents with epigastric and right upper quadrant abdominal pain, nausea, vomiting for 48 hours [employer] intermittently Abdominal ultrasound and CT obtained in the ED, U/S showing gallstones, CT consistent with edematous changes of gallbladder wall and ann-cholecystic soft tissue, consistent with acute cholecystitis Surgery consulted, s/p cholecystectomy 12/23. Choledocholithiasis identified on MRCP GI performed ERCP DC on Augmentine and Flagyl x 10 days DC home today (2) Elevated LFTs: Secondary to above (3) Obesity (BMI 35.0-39.9 without comorbidity): In the past patient was morbidly obese, with BMI greater than 50 Only recently underwent gastric sleeve bypass surgery and lost over 100 pounds His current BMI is 37 which is in the obese category, class II however much improved from previous Patient plans to continue with weight loss management after discharge (4) ROSALVA (obstructive sleep apnea): Previously patient was morbidly obese, with BMI greater than 50, in the past he used CPAP (5) History of gastroesophageal reflux (GERD): At home takes PPI, will hold for now as patient is n.p.o. Plan to resume after discharge (6) Gout: At home takes allopurinol, will hold for now as patient is n.p.o. Plan to resume after discharge (7) DVT prophylaxis: (8) Discharge planning issues: No discharge issues identified on admission. Pt lives at home w/his , should be able to return back home after his hospitalization. Total Time Total Time Spent Total Time Spent (In Minutes): 45 mins Total Time Includes: Examination of the Patient, Discharge Planning, Medication Reconciliation and Communication With Other Providers Discharge Plan Discharge Items Patient Disposition: Home - Self-Care Reason For Visit: ACUTE CHOLECYSTITIS Discharge Diagnosis: Acute Cholecystitis Activity: Resume your previous activity Lifting: None Bathing: Keep incision dry Sexual Activity: When tolerated Exercise/Sports: Gradually increase as tolerated Driving/Machine Use: No limitations Weightbearing: Full weightbearing Non-emergency contact: Primary Care Provider and Surgeon Call non-emergency contact if: you have any medication questions and your symptoms worsen Follow-up/Referrals: Tom Madera MD [Primary Care Provider] - (As Needed) Wilmer Dillard MD [Physician] - (1-2 weeks) Diet: Carb Consistent or DM2 and Heart Healthy Addtl Attending Provider Instructions: Routine post op f/u Pending Studies at Discharge: No Stand-Alone Forms: Call Back Authorization, [employer], Opioid Pain Management Medications and DC Order Prescriptions: New hydrocodone-acetaminophen [[place]] 5-325 mg Tablet 1 tab PO Q6H PRN (Reason: pain) Qty: 30 RF: 0 Continued esomeprazole magnesium [Nexium] 40 mg Capsule,Delayed Release(Dr/Ec) 40 mg PO QPM RF: 0 allopurinol [Zyloprim] 300 mg tablet 300 mg PO QPM RF: 0 hydrocodone-acetaminophen [[place]] 5-325 mg tablet 1 tab PO Q6H PRN (Reason: Pain) Qty: 30 RF: 0 Discharge Orders: Discharge Order (Routine); Ordered 12/24/18 Ordered By: Tigre Sierra Admission Data Admit Date/Time: 12/23/18 11:32 Attending Provider: Tigre Sierra Admit Provider: Jonathon Patel Primary Care Provider: Tom Madera Other Providers: Yessy Lomeli ; Carolyn Patel ; John Null ; Shawna Gonzales ; Lonnie King ; Marianne Alonso ; Agustin Zavala ; Олег Smith ; Rhina Cha ; Kenny Nuñez ; Rylee Masters ; Hung Masters Jr ; Wilmer Dillard ; Carolyn Velasco
[2018-12-24] MEDS: HYDROCODONE/ACETAMOPHEN 5/325MG TAB PO PRN (11:23)
== END 2018-12-24 13:02 | disposition home or self-care (01) | DRG 446 ==
LOC: ED 06:41 → 3N 06:41 → SUATTDRO 12:26 → 3N 13:10